=== PATIENT | female | born 1985 | race American Indian/Alaskan Native ===

== ENCOUNTER 2017-01-30 21:59 | Emergency (ER) | payer MEDICAID ==
[~2017-01-30] VITALS: Ht 160 cm; Wt 104.3 kg
[2017-01-30] MEDS ORDERED: Ketorolac 30mg Inj IV ONE (22:45)
[2017-01-30] MEDS ORDERED: Tetanus/Diptheria/Pertussis Vaccine 0.5ml Syr IM ONE (22:45)
[2017-01-30] MEDS ORDERED: Morphine Sulfate 4mg/ml Inj IVP ONE (22:45)
[2017-01-30 23:38] LABS: APPEARANCE,URINE SLIGHTLY CLOUDY; BASOPHILS % (AUTO) 0.7 % (0.0-2.0); EOSINOPHILS % (AUTO) 0.1 % (0.0-3.0); KETONES,URINE NEGATIVE (NEGATIVE); LEUKOCYTE ESTERASE ,URINE 3+ (NEGATIVE); LYMPHOCYTES % (AUTO) 14.1 % (20.0-45.0); MEAN CORPUSCULAR HEMOGLOBIN 27.4 PG (27.0-31.0); MEAN CORPUSCULAR HGB CONC 33.1 G/DL (32.0-36.0); MEAN CORPUSCULAR VOLUME 83 FL (80-99); MEAN PLATELET VOLUME 9.3 FL (6.5-10.1); MONOCYTES % (AUTO) 5.3 % (1.0-10.0); NEUTROPHILS % (AUTO) 79.7 % (45.0-75.0); NITRITE,URINE NEGATIVE (NEGATIVE); PH,URINE 6 (4.5-8.0); PLATELET COUNT 181 K/UL (150-450); PROTEIN,URINE 1+ (NEGATIVE); RED BLOOD COUNT 4.53 M/UL (4.20-5.40); RED CELL DISTRIBUTION WIDTH 14.8 % (11.6-14.8); UROBILINOGEN,URINE 4 MG/DL (0.0-1.0); WHITE BLOOD COUNT 13.3 K/UL (4.8-10.8)
[2017-01-30 23:55] LABS: ALANINE AMINOTRANSFERASE 8 U/L (3-33); ALBUMIN/GLOBULIN RATIO 1.2 (1.0-2.7); ANION GAP 15 (5-15); ASPARTATE AMINO TRANSFERASE 20 U/L (5-40); CALCIUM 9.2 mg/dL (8.6-10.2); CARBON DIOXIDE 26 mEQ/L (20-30); CHLORIDE 96 mEQ/L (98-107); GLOMERULAR FILTRATION RATE > 60 mL/min (>60); HEMOLYSIS 0; POTASSIUM 3.6 mEQ/L (3.4-4.9); SODIUM 137 mEQ/L (135-145); TOTAL PROTEIN 7.7 g/dL (6.6-8.7)
[2017-01-31 00:01] LABS: BACTERIA,URINE FEW /HPF; MUCUS,URINE MODERATE /LPF (NONE/OCC); RBC,URINE 0-2 /HPF (0 - 2); SQUAMOUS EPITHELIAL CELL,UR MODERATE /LPF (NONE/OCC); TRICHOMONAS,URINE MODERATE /HPF
[2017-01-31 00:02] LABS: INR 0.9 (0.9-1.1); PROTHROMBIN TIME 9.9 SEC (9.30-11.50)
[2017-01-31] MEDS ORDERED: Bactrim DS (160mg/800mg) tab ORAL ONE (00:15)
[2017-01-31] MEDS ORDERED: cefTRIAXone 1 GM in NS 55 ML IVPB ONE (00:15)
[2017-01-31 01:21] VITALS: BP 102/53
--- NOTE | 2017-01-31 01:21 | Emergency Room Report ---
History of Present Illness General Chief Complaint: Edema Source: Patient Present Illness HPI Presents with increased pain her right foot with swelling. She had a history of lymphedema in the past. The increased swelling and pain increased over the last few days. The pain is 10/10 burning aching and radiating towards her body. Swelling is also worsened at this time. She's felt that her foot is not fitting in DESI hose at this time. She's not sure when her last tetanus was. H/O lymphedema or R leg - longstanding, not sure of cause. No fevers, NVD, dysuria, cough, dyspnea, chest pain, dizziness, headache, change in bowels. No depression. Allergies: Coded Allergies: No Known Allergies (Unverified , 01/30/17) Patient History Past Medical History: see triage record Social History: Reports: smoking Social History Narrative with friend Reviewed Nursing Documentation: PMH: Agreed, PSxH: Agreed Nursing Documentation-PMH Past Medical History: No Stated History Review of Systems All Other Systems: negative except mentioned in HPI Physical Exam Vital Signs Date Time Temp Pulse Resp B/P (MAP) Pulse Ox O2 Delivery O2 Flow Rate FiO2 01/30/17 22:22 98.8 109 20 169/126 98 Room Air Sp02 EP Interpretation: reviewed, normal General Appearance: well appearing, no apparent distress, GCS 15 Head: normocephalic Eyes: bilateral eye normal inspection, bilateral eye PERRL ENT: moist mucus membranes Neck: supple Respiratory: chest non-tender, lungs clear, normal breath sounds Cardiovascular #1: regular rate, rhythm, other - cap fill normal R foot, edema - R leg, more lymphedema than pitting Cardiovascular #2: 2+ radial (R) Gastrointestinal: normal inspection, normal bowel sounds, non tender, no mass, non-distended, overweight Musculoskeletal: digits/nails normal, no calf tenderness, Nery's Sign negative , inflammation, swelling - dorsum of R foot Neurologic: alert, oriented x3, grossly normal Psychiatric: mood/affect normal Skin: warm/dry, other - erythema R dorsum of foot Medical Decision Making Diagnostic Impression: Primary Impression: Cellulitis Qualified Codes: L03.115 - Cellulitis of right lower limb Additional Impressions: Lymphedema UTI (urinary tract infection) Qualified Codes: N30.00 - Acute cystitis without hematuria ER Course Patient with increased pain and swelling R LE. Ddx: DVT, cellulitis, lymphedema amongst others. Urgent evaluation to exclude DVT and evaluate renal function. Treatment for pain and initiation of antibiotics. Analgesics given. Labs with leukocytosis and pyuria. DVT excluded with vasc study. Consideration for need for further IV antibiotics due to lymphedema, however, will attempt to control infection with po meds. One dose of rocephin given. Patient stable for outpatient observation and treatment. Laboratory Tests Test 01/30/17 23:00 White Blood Count 13.3 K/UL (4.8-10.8) H Red Blood Count 4.53 M/UL (4.20-5.40) Hemoglobin 12.4 G/DL (12.0-16.0) Hematocrit 37.5 % (37.0-47.0) Mean Corpuscular Volume 83 FL (80-99) Mean Corpuscular Hemoglobin 27.4 PG (27.0-31.0) Mean Corpuscular Hemoglobin Concent 33.1 G/DL (32.0-36.0) Red Cell Distribution Width 14.8 % (11.6-14.8) Platelet Count 181 K/UL (150-450) Mean Platelet Volume 9.3 FL (6.5-10.1) Neutrophils (%) (Auto) 79.7 % (45.0-75.0) H Lymphocytes (%) (Auto) 14.1 % (20.0-45.0) L Monocytes (%) (Auto) 5.3 % (1.0-10.0) Eosinophils (%) (Auto) 0.1 % (0.0-3.0) Basophils (%) (Auto) 0.7 % (0.0-2.0) Prothrombin Time 9.9 SEC (9.30-11.50) Prothrombin Time INR 0.9 (0.9-1.1) PTT 30 SEC (23-33) Urine Color [place] Urine Appearance Slightly cloudy Urine pH 6 (4.5-8.0) Urine Specific [place] 1.015 (1.005-1.035) Urine Protein 1+ (NEGATIVE) H Urine Glucose (UA) Negative (NEGATIVE) Urine Ketones Negative (NEGATIVE) Urine Occult Blood Negative (NEGATIVE) Urine Nitrite Negative (NEGATIVE) Urine Bilirubin Negative (NEGATIVE) Urine Ictotest Urine Urobilinogen 4 MG/DL (0.0-1.0) H Urine Leukocyte Esterase 3+ (NEGATIVE) H Urine RBC 0-2 /HPF (0 - 2) Urine WBC 10-15 /HPF (0 - 2) H Urine Squamous Epithelial Cells Moderate /LPF (NONE/OCC) H Urine Bacteria Few /HPF (NONE) Urine Mucus Moderate /LPF (NONE/OCC) H Urine Trichomonas Moderate /HPF (NONE) H Urine HCG, Qualitative Negative Sodium Level 137 mEQ/L (135-145) Potassium Level 3.6 mEQ/L (3.4-4.9) Chloride Level 96 mEQ/L (98-107) L Carbon Dioxide Level 26 mEQ/L (20-30) Anion Gap 15 (5-15) Blood Urea Nitrogen 16 mg/dL (7-23) Creatinine 1.0 mg/dL (0.5-0.9) H Estimate Glomerular Filtration Rate > 60 mL/min (>60) Glucose Level 104 mg/dL (74-106) Calcium Level 9.2 mg/dL (8.6-10.2) Total Bilirubin 0.6 mg/dL (0.0-1.2) Aspartate Amino Transferase (AST) 20 U/L (5-40) Alanine Aminotransferase (ALT) 8 U/L (3-33) Alkaline Phosphatase 71 U/L (35-104) Total Creatine Kinase 206 U/L (26-140) H Pro-B-Type Natriuretic Peptide 11 pg/mL (0-125) Total Protein 7.7 g/dL (6.6-8.7) Albumin 4.2 g/dL (3.5-5.2) Globulin 3.5 g/dL Albumin/Globulin Ratio 1.2 (1.0-2.7) EKG Diagnostic Results Rate: tachycardiac Rhythm: NSR ST Segments: no acute changes Rhythm Strip Diag. Results EP Interpretation: yes Rhythm: NSR, no PVC's, no ectopy Chest X-Ray Diagnostic Results Chest X-Ray Diagnostic Results : Chest X-Ray Ordered: Yes # of Views/Limited/Complete: 1 View Indication: Other EP Interpretation: Yes Interpretation: no consolidation, no effusion, no pneumothorax Impression: No acute disease Electronically Signed by: Electronically signed by Michael Max MD Other X-Ray Diagnostic Results Other X-Ray Diagnostic Results : X-Ray ordered: R foot # of Views/Limited Vs Complete: 3 View Indication: Swelling EP Interpretation: Yes Interpretation: no dislocation, no soft tissue swelling, no fractures Impression: Other Electronically Signed by: Electronic Last Vital Signs Date Time Temp Pulse Resp B/P (MAP) Pulse Ox O2 Delivery O2 Flow Rate FiO2 01/31/17 01:45 98.8 81 20 112/61 98 Room Air Status: improved Disposition: HOME, SELF-CARE Condition: Improved Scripts Trimethoprim/Sulfamethoxazole 160/800* (BACTRIM DS TABLET*) 1 Each Tablet 1 TAB ORAL Q12H, #14 TAB 0 Refills Prov: Michael Max M.D. 01/31/17 Ibuprofen* (MOTRIN*) 600 Mg Tablet 600 MG ORAL Q6H Y for For Pain, #20 TAB Prov: Michael Max M.D. 01/31/17 Tramadol Hcl* (ULTRAM*) 50 Mg Tablet 50 MG ORAL Q6H Y for For Pain, #12 TAB 0 Refills Prov: Michael Max M.D. 01/31/17 Cephalexin* (KEFLEX*) 500 Mg Capsule 500 MG ORAL Q6H, #28 CAP 0 Refills Prov: Michael Max M.D. 01/31/17 Michael Max M.D. Jan 31, 2017 01:21
[2017-01-31] MEDS ORDERED: IBUPROFEN600 MG ORAL (01:25)
[2017-01-31] MEDS ORDERED: BACTRIM DS TAB1 EAC1 ORAL (01:25)
[2017-01-31] MEDS ORDERED: KEFLEX500 MG ORAL (01:25)
[2017-01-31] MEDS ORDERED: TRAMADOL HCL50 MG ORAL (01:25)
[2017-01-31 01:45] VITALS: BP_SYST 102; BP_SYST 112; BP_DIAS 53; BP_DIAS 61
--- NOTE | 2017-01-31 12:50 | Diagnostic Imaging Report ---
APPROVED REPORT CPT Code: 02208 Present Symptoms Lower Extremity Pain: Right Lower Extremity Edema: Right Comments: Technically difficult study due to vessel depth in calf area . RIGHT LEG: Imaging reveals a patent deep venous system bilaterally. There is no evidence of thrombus within the femoral, popliteal or tibial segments. The greater saphenous veins are also within normal limits. Doppler indicates normal spontaneous flow within these segments.
--- NOTE | 2017-01-31 15:14 | Diagnostic Imaging Report ---
Indication: Foot pain and swelling, possible bug bite Technique: 3 views right foot Comparison: none Findings: There is soft tissue swelling, particularly dorsally. No soft tissue gas demonstrated. No radiopaque foreign body demonstrated. No acute fractures. No dislocations Impression: Soft tissue swelling. Graft negative for soft tissue gas, foreign body, or bony injury This agrees with the preliminary interpretation provided by the emergency room physician
--- NOTE | 2017-01-31 15:59 | Diagnostic Imaging Report ---
Indication: SYNCOPE Technique: One view of the chest Comparison: none Findings: Lungs and pleural spaces are clear. Heart size is normal. Impression: No acute process This agrees with the preliminary interpretation provided by the emergency room physician
== END 2017-01-31 01:45 | disposition home or self-care (01) ==
LOC: EMR 22:35
DX: L03.115 Cellulitis of right lower limb (principal); I89.0 Lymphedema, not elsewhere classified; N39.0 Urinary tract infection, site not specified; Z23 Encounter for immunization; F17.200 Nicotine dependence, unspecified, uncomplicated
CPT/HCPCS: 36415; 71010; 73630; 80053; 81003; 81025; 82550; 83880; 85025; 85610; 85730; 87086; 90471; 90715; 93005; 93970; 96361; 96374; 96375; 99284; J0696; J1885; J2270; J2405

== ENCOUNTER 2017-02-16 12:54 | Inpatient (IN) | payer MEDICAID ==
[~2017-02-16] VITALS: Ht 160 cm; Wt 104.3 kg
[~2017-02-16 12:54] MED LIST: BACTRIM DS TAB1 EAC1 ORAL; IBUPROFEN600 MG ORAL; KEFLEX500 MG ORAL; TRAMADOL HCL50 MG ORAL
--- NOTE | 2017-02-16 13:29 | Emergency Room Report ---
History of Present Illness General Chief Complaint: Fever Source: Patient (Ralph Parsons M.D.) Present Illness HPI 31-year-old female history of morbid obesity, lymphedema, presenting with right lower extremity pain and rash for 2 weeks Patient completed Bactrim and Keflex as prescribed by the emergency room 2 weeks ago. States that she has had increased pain and swelling to the area also with subjective fevers During the last ED visit also had a vascular ultrasound that was negative for DVT (Ralph Parsons M.D.) Allergies: Coded Allergies: No Known Allergies (Unverified , 01/30/17) Patient History Past Medical History: see triage record Past Surgical History: none Pertinent Family History: none Last Menstrual Period: 02/16/17 Now: No : 5 Para: 4 Reviewed Nursing Documentation: PMH: Agreed, PSxH: Agreed (Ralph Parsons M.D. ) Nursing Documentation-PMH Past Medical History: No History, Except For Hx Cardiac Problems: No - lymphadema (Ralph Parsons M.D.) Review of Systems All Other Systems: negative except mentioned in HPI (Ralph Parsons M.D.) Physical Exam Vital Signs Date Time Temp Pulse Resp B/P (MAP) Pulse Ox O2 Delivery O2 Flow Rate FiO2 02/16/17 13:05 102.7 125 26 105/65 97 Room Air Sp02 EP Interpretation: reviewed, normal General Appearance: alert, GCS 15, non-toxic, moderate distress Head: normocephalic, atraumatic Eyes: bilateral eye normal inspection, bilateral eye PERRL, bilateral eye EOMI ENT: normal ENT inspection, normal pharynx, normal voice, moist mucus membranes Neck: normal inspection, full range of motion, supple Respiratory: normal inspection, lungs clear, normal breath sounds, no respiratory distress, no retraction, no wheezing, speaking full sentences, chest symmetrical Cardiovascular #1: normal inspection, regular rate, rhythm, no edema, normal capillary refill Cardiovascular #2: 2+ radial (R), 2+ radial (L) Gastrointestinal: normal inspection, non tender, soft, non-distended, no guarding Musculoskeletal: normal range of motion, other - Right lower extremity with redness and edema extending from the dorsum of the foot to the distal third calf. Tender to palpation. With open abrasion that is wet but without edil purulent drainage Neurologic: normal inspection, alert, oriented x3, responsive, motor strength/ tone normal, sensory intact, normal gait, speech normal Psychiatric: normal inspection, judgement/insight normal, memory normal Skin: normal inspection, normal color, no rash, warm/dry, well hydrated, normal turgor (Ralph aPrsons M.D.) Procedures Critical Care Time Critical Care Time 40 minutes of CC time 31-year-old female with right lower extremity cellulitis VS: Tachycardic, normal blood pressure Sepsis criteria met Airway patent. Not hypoxic. PLAN: IV access, labs, lactate, Blood/Urine Cx, Abx Anticipate admission to Tele CC time also includes review of labs, review of EMR, , d/w hospitalist CC could include dosing of pressors, additional Abx CC time does not include procedures (Ralph Parsons M.D.) Medical Decision Making Diagnostic Impression: Primary Impression: Cellulitis Additional Impressions: Fever with chills Sepsis ER Course 31-year-old female with right lower extremity pain and swelling, failed outpatient treatment for antibiotics DDX: cellulitis No crepitus / pain out of proportion / rapid spreading for concern for nec fasc Plan: Antibiotics Anticipate admission ER course: Patient has been monitored during ED stay, HD stable Given Tylenol and dose of vancomycin Disposition: Patient is to be admitted to [facility] Signed out patient to Dr. Osorio 31-year-old female with cellulitis failed outpatient treatment Pending remaining labs Pending admission to [facility] Please note that this Emergency Department Report was dictated using [employer] blender technology software, occasionally this can lead to erroneous entry secondary to interpretation by the dictation equipment. Laboratory Tests Test 02/19/17 07:52 White Blood Count 6.3 K/UL (4.8-10.8) Red Blood Count 3.29 M/UL (4.20-5.40) L Hemoglobin 8.5 G/DL (12.0-16.0) L Hematocrit 26.7 % (37.0-47.0) L Mean Corpuscular Volume 81 FL (80-99) Mean Corpuscular Hemoglobin 25.8 PG (27.0-31.0) L Mean Corpuscular Hemoglobin Concent 31.8 G/DL (32.0-36.0) L Red Cell Distribution Width 15.2 % (11.6-14.8) H Platelet Count 126 K/UL (150-450) L Mean Platelet Volume 8.7 FL (6.5-10.1) Neutrophils (%) (Auto) 83.1 % (45.0-75.0) H Lymphocytes (%) (Auto) 11.0 % (20.0-45.0) L Monocytes (%) (Auto) 5.0 % (1.0-10.0) Eosinophils (%) (Auto) 0.0 % (0.0-3.0) Basophils (%) (Auto) 0.8 % (0.0-2.0) Sodium Level 131 MMOL/L (136-145) L Potassium Level 3.6 MMOL/L (3.5-5.1) Chloride Level 100 MMOL/L (98-107) Carbon Dioxide Level 23 MMOL/L (21-32) Anion Gap 8 (5-15) Blood Urea Nitrogen 6 mg/dL (7-18) L Creatinine 0.8 MG/DL (0.55-1.30) Estimate Glomerular Filtration Rate > 60 mL/min (>60) Glucose Level 85 MG/DL (74-106) Calcium Level 8.6 MG/DL (8.5-10.1) Phosphorus Level 2.3 MG/DL (2.5-4.9) L Magnesium Level 1.7 MG/DL (1.8-2.4) L (Ralph Parsons M.D.) ER Course Seen by for history of present illness. Patient was noted to have evidence of cellulitis. The patient had been given IV antibiotics the patient' s case was discussed with Dr. Peace for for inpatient management. (Donte Osorio) Rhythm Strip Diag. Results EP Interpretation: yes Rate: 100 Rhythm: NSR, no PVC's, no ectopy (Ralph Parsons M.D.) Last Vital Signs Date Time Temp Pulse Resp B/P (MAP) Pulse Ox O2 Delivery O2 Flow Rate FiO2 02/16/17 13:05 102.7 125 26 105/65 97 Room Air (Ralph Parsons M.D.) Status: improved (Donte Osorio) Disposition: ADMITTED INPATIENT Condition: Serious Scripts Trimethoprim/Sulfamethoxazole 160/800* (BACTRIM DS TABLET*) 1 Each Tablet 1 TAB ORAL Q12H for 7 Days, #14 TAB 0 Refills Prov: Michael Sevilla M.D. 02/22/17 Cephalexin* (KEFLEX*) 500 Mg Capsule 500 MG ORAL Q6H for 7 Days, #28 CAP 0 Refills Prov: Michael Sevilla M.D. 02/22/17 Ralph Parsons M.D. Feb 16, 2017 13:29 Donte Osorio Feb 16, 2017 14:57
[2017-02-16] MEDS ORDERED: NS 1000ml 3,100 ML IVLG ONE (13:30)
[2017-02-16] MEDS ORDERED: Vancomycin 1.5gm/D5W 250ml 250 ML IVPB ONE (13:30)
[2017-02-16 13:45] LABS: MEAN CORPUSCULAR HEMOGLOBIN 25.6 PG (27.0-31.0); MEAN CORPUSCULAR HGB CONC 31.1 G/DL (32.0-36.0); MEAN CORPUSCULAR VOLUME 82 FL (80-99); MEAN PLATELET VOLUME 9.6 FL (6.5-10.1); PLATELET COUNT 214 K/UL (150-450); RED BLOOD COUNT 4.54 M/UL (4.20-5.40); RED CELL DISTRIBUTION WIDTH 14.5 % (11.6-14.8); WHITE BLOOD COUNT 19.2 K/UL (4.8-10.8)
[2017-02-16 13:55] VITALS: BP 116/60
[2017-02-16 13:59] LABS: ALANINE AMINOTRANSFERASE 15 U/L (12-78); ALBUMIN/GLOBULIN RATIO 0.8 (1.0-2.7); ANION GAP 9 (5-15); ASPARTATE AMINO TRANSFERASE 22 U/L (15-37); CALCIUM 9.4 MG/DL (8.5-10.1); CARBON DIOXIDE 24 MMOL/L (21-32); CHLORIDE 101 MMOL/L (98-107); CREATININE 1.1 MG/DL (0.55-1.30); POTASSIUM 3.4 MMOL/L (3.5-5.1); SODIUM 134 MMOL/L (136-145); TOTAL PROTEIN 7.9 G/DL (6.4-8.2)
[2017-02-16] MEDS ORDERED: Morphine Sulfate 4mg/ml Inj IVP ONE ×2 (14:00→16:15)
[2017-02-16 15:39] LABS: APPEARANCE,URINE SLIGHTLY CLOUDY; KETONES,URINE NEGATIVE (NEGATIVE); LEUKOCYTE ESTERASE ,URINE 3+ (NEGATIVE); NITRITE,URINE NEGATIVE (NEGATIVE); PH,URINE 6.5 (4.5-8.0); PROTEIN,URINE NEGATIVE (NEGATIVE); UROBILINOGEN,URINE NORMAL MG/DL (0.0-1.0)
[2017-02-16] MEDS ORDERED: NKM (16:12)
[2017-02-16 16:14] LABS: BACTERIA,URINE MODERATE /HPF; SQUAMOUS EPITHELIAL CELL,UR MODERATE /LPF (NONE/OCC)
[2017-02-16 16:21] VITALS: BP 102/66
[2017-02-16 16:43] LABS: BAND NEUTROPHILS % (MANUAL) 3 % (0-8); LYMPHOCYTES % (MANUAL) 4 % (20-45); NEUTROPHILS % (MANUAL) 92 % (45-75); TOTAL CELLS COUNTED 100
[2017-02-16] MEDS ORDERED: Miralax 17gm pkt ORAL PRN (16:45)
[2017-02-16] MEDS ORDERED: Zolpidem 5mg tab ORAL PRN (16:45)
[2017-02-16] MEDS ORDERED: Mylanta II UD 30ml ORAL PRN (16:45)
[2017-02-16 16:46] LABS: ANISOCYTOSIS 1+; BASOPHILS % (MANUAL) 0 % (0-2); EOSINOPHILS % (MANUAL) 0 % (0-3); PLATELET ESTIMATE ADEQUATE; PLATELET MORPHOLOGY NORMAL; POLYCHROMASIA 1+
--- NOTE | 2017-02-16 16:47 | History and Physical ---
History of Present Illness General Date patient seen: Feb 16, 2017 Time patient seen: 16:47 Reason for Hospitalization: sepsis Present Illness HPI 31y/o female with pmh of lymphedema who presents with increased RLE pain/ swelling/redness. Pt states abt 2 weeks ago she was seen in ER and placed on antibiotics for cellulitis and also for UTI. She completed the antibiotics abt 1 week ago; and she was able to ambulate. However today she noted recurrent RLE swelling/pain/redness with difficulty ambulating/bearing weight on RLE. Also noted some purulent drainage from R foot. She thinks abt 2 weeks ago she had some kind of bug bite or R foot. She also started having fevers/chills, nausea, poor appetite and generalized weakness. Denies chest pain, SOB, abd pain, dysuria. She denies recent travel. Allergies: Coded Allergies: No Known Allergies (Unverified , 01/30/17) Medication History Scheduled Cephalexin* (Keflex*), 500 MG ORAL Q6H No Known Medications* (NKM - No Known Medications*), 0 ., (Reported) Trimethoprim/Sulfamethoxazole 160/800* (Bactrim Ds Tablet*), 1 TAB ORAL Q12H Scheduled PRN Ibuprofen* (Motrin*), 600 MG ORAL Q6H PRN for For Pain Tramadol Hcl* (Ultram*), 50 MG ORAL Q6H PRN for For Pain Patient History History Provided By: Patient, Medical Record Healthcare decision maker Resuscitation status Advanced Directive on File Past Medical/Surgical History Past Medical/Surgical History: (1) Lymphedema Social History Social History: (1) Smoker Review of Systems Constitutional: Reports: chills, fever, weakness Eye: Reports: no symptoms ENT: Reports: no symptoms Respiratory: Reports: no symptoms Cardiovascular: Reports: no symptoms Gastrointestinal: Reports: no symptoms Genitourinary: Reports: no symptoms Musculoskeletal: Reports: no symptoms Skin: Reports: no symptoms Psychiatric: Reports: no symptoms Neurological: Reports: no symptoms Endocrine: Reports: no symptoms Hematologic/Lymphatic: Reports: no symptoms Physical Exam Physical Exam Narrative General: alert, cooperative, no distress, appears stated age Head: normocephalic, without obvious abnormality, atraumatic Eyes: conjunctivae/corneas clear. PERRL, EOM's intact Throat: lips, mucosa, and tongue normal. MMM Neck: supple, symmetrical, trachea midline, and no JVD Lungs: clear to auscultation bilaterally Heart: regular rate and rhythm, S1, S2 normal, no murmur, click, rub or gallop Abdomen: soft, non-tender, non-distended, bowel sounds normal; no masses or organomegaly Extremities: Right lower extremity with 3+ edema/erythema/TTP from the dorsum of the foot to the distal third calf. With open abrasion on dorsum of R foot that is wet but without edil purulent drainage Pulses: 2+ and symmetric Skin: skin color, texture, turgor normal; no rashes or lesions Neurologic: grossly normal, no focal deficits Last 24 Hour Vital Signs Date Time Temp Pulse Resp B/P (MAP) Pulse Ox O2 Delivery O2 Flow Rate FiO2 02/16/17 16:39 100.2 02/16/17 16:21 100.2 105 26 102/66 99 Room Air 02/16/17 14:57 102.0 02/16/17 14:57 102.0 02/16/17 13:55 102.7 103 26 116/60 97 Room Air 02/16/17 13:05 102.7 125 26 105/65 97 Room Air Intake and Output 02/16/17 02/17/17 19:00 07:00 Intake Total 120 ml Balance 120 ml Intake Oral 120 ml Laboratory Tests Test 02/16/17 13:25 02/16/17 14:50 White Blood Count 19.2 K/UL (4.8-10.8) H Red Blood Count 4.54 M/UL (4.20-5.40) Hemoglobin 11.6 G/DL (12.0-16.0) L Hematocrit 37.3 % (37.0-47.0) Mean Corpuscular Volume 82 FL (80-99) Mean Corpuscular Hemoglobin 25.6 PG (27.0-31.0) L Mean Corpuscular Hemoglobin Concent 31.1 G/DL (32.0-36.0) L Red Cell Distribution Width 14.5 % (11.6-14.8) Platelet Count 214 K/UL (150-450) Mean Platelet Volume 9.6 FL (6.5-10.1) Neutrophils (%) (Auto) % (45.0-75.0) Lymphocytes (%) (Auto) % (20.0-45.0) Monocytes (%) (Auto) % (1.0-10.0) Eosinophils (%) (Auto) % (0.0-3.0) Basophils (%) (Auto) % (0.0-2.0) Differential Total Cells Counted 100 Neutrophils % (Manual) 92 % (45-75) H Lymphocytes % (Manual) 4 % (20-45) L Monocytes % (Manual) 1 % (1-10) Eosinophils % (Manual) 0 % (0-3) Basophils % (Manual) 0 % (0-2) Band Neutrophils 3 % (0-8) Platelet Estimate Adequate Platelet Morphology Normal Polychromasia 1+ Anisocytosis 1+ Sodium Level 134 MMOL/L (136-145) L Potassium Level 3.4 MMOL/L (3.5-5.1) L Chloride Level 101 MMOL/L (98-107) Carbon Dioxide Level 24 MMOL/L (21-32) Anion Gap 9 (5-15) Blood Urea Nitrogen 14 mg/dL (7-18) Creatinine 1.1 MG/DL (0.55-1.30) Estimat Glomerular Filtration Rate 58.0 mL/min (>60) Glucose Level 95 MG/DL (74-106) Lactic Acid Level 1.40 mmol/L (0.66-2.22) Calcium Level 9.4 MG/DL (8.5-10.1) Total Bilirubin 0.7 MG/DL (0.2-1.0) Aspartate Amino Transf (AST/SGOT) 22 U/L (15-37) Alanine Aminotransferase (ALT/SGPT) 15 U/L (12-78) Alkaline Phosphatase 60 U/L (46-116) Total Protein 7.9 G/DL (6.4-8.2) Albumin 3.6 G/DL (3.4-5.0) Globulin 4.3 g/dL Albumin/Globulin Ratio 0.8 (1.0-2.7) L Urine Color Pale yellow Urine Appearance Slightly cloudy Urine pH 6.5 (4.5-8.0) Urine Specific [place] 1.005 (1.005-1.035) Urine Protein Negative (NEGATIVE) Urine Glucose (UA) Negative (NEGATIVE) Urine Ketones Negative (NEGATIVE) Urine Occult Blood 4+ (NEGATIVE) H Urine Nitrite Negative (NEGATIVE) Urine Bilirubin Negative (NEGATIVE) Urine Urobilinogen Normal MG/DL (0.0-1.0) Urine Leukocyte Esterase 3+ (NEGATIVE) H Urine RBC 10-15 /HPF (0 - 2) H Urine WBC 10-15 /HPF (0 - 2) H Urine Squamous Epithelial Cells Moderate /LPF (NONE/OCC) H Urine Bacteria Moderate /HPF (NONE) H Urine HCG, Qualitative Negative Height (Feet): 5 Height (Inches): 3.00 Weight (Pounds): 230 Medications Current Medications Medications (Trade) Dose Ordered Sig/Zane Route PRN Reason Start Time Stop Time Status Last Admin Dose Admin Acetaminophen (Tylenol) 650 mg Q4H PRN ORAL Mild Pain (Pain Scale 1-3) 02/16/17 16:45 03/18/17 16:44 UNV Al Hydroxide/Mg Hydroxide (Mylanta II) 30 ml Q6H PRN ORAL dyspepsia 02/16/17 16:45 03/18/17 16:44 UNV Bisacodyl (Dulcolax) 10 mg HSPRN PRN RECTAL Constipation 02/16/17 16:45 03/18/17 16:44 UNV Dextrose (Dextrose 50%) STAT PRN IV Hypoglycemia 02/16/17 16:45 03/18/17 16:44 UNV Diphenhydramine HCl (Benadryl) 25 mg Q6H PRN ORAL Itching/Pruritis 02/16/17 16:45 03/18/17 16:44 UNV Docusate Sodium (Colace) 100 mg EVERY 12 HOURS ORAL 02/16/17 21:00 03/18/17 20:59 UNV Heparin Sodium (Porcine) (Heparin 5000 units/ml) 5,000 units EVERY 12 HOURS SUBQ 02/16/17 21:00 03/18/17 20:59 UNV Ondansetron HCl (Zofran) 4 mg Q6H PRN IVP Nausea & Vomiting 02/16/17 16:45 03/18/17 16:44 UNV Polyethylene Glycol (Miralax) 17 gm HSPRN PRN ORAL Constipation 02/16/17 16:45 03/18/17 16:44 UNV Potassium Chloride (K-Dur) 40 meq ONCE ONCE ORAL 02/16/17 16:45 02/16/17 16:46 UNV Sodium Chloride 1,000 ml @ 100 mls/hr Q10H IV 02/16/17 16:45 03/18/17 16:44 UNV Vancomycin HCl (Vanco rx to dose) 1 ea DAILY PRN MISC Per rx protocol 02/16/17 16:45 03/18/17 16:44 UNV Zolpidem Tartrate (Ambien) 5 mg HSPRN PRN ORAL Insomnia 02/16/17 16:45 02/23/17 16:44 UNV Assessment/Plan Problem List: (1) Sepsis ICD Codes: A41.9 - Sepsis, unspecified organism SNOMED: 79645169 (2) Cellulitis of right lower extremity ICD Codes: L03.115 - Cellulitis of right lower limb SNOMED: 757948731 (3) UTI (urinary tract infection) ICD Codes: N39.0 - Urinary tract infection, site not specified SNOMED: 72979579 (4) Trichomonal vaginitis ICD Codes: A59.01 - Trichomonal vulvovaginitis SNOMED: 104602714 (5) Hypokalemia ICD Codes: E87.6 - Hypokalemia SNOMED: 07987046 (6) Hyponatremia ICD Codes: E87.1 - Hypo-osmolality and hyponatremia SNOMED: 96350915 Status: stable Assessment/Plan Admit inpt IVFs ID consulted Empiric vanco and cefepime for sepsis Add flagyl to cover trichomonas seen on prior U/A F/u blood cultures F/u urine culture Check BLE venous duplex Check CT foot and RLE to eval for underlying abscess Pain control, bowel regimen Supportive care Family Practice Physician Assistant on smoking cessation FULL CODE D/w pt, RN, ID regarding mgmt and Michael Moser M.D. Feb 16, 2017 16:47
[2017-02-16] MEDS ORDERED: Norco 5mg/325mg tab ORAL PRN (17:00)
[2017-02-16] MEDS: Norco 10mg/325mg tab ORAL PRN (17:48)
[2017-02-16] MEDS: Cefepime HCl 2 GM in D5W 110 ML IVPB SCH (17:58)
--- NOTE | 2017-02-16 18:07 | Infectious Diseases Prog Note ---
Assessment/Plan Assessment/Plan Full consult dictated: A) 1) right foot possible abscess/cellulitis, right leg cellulitis, sepsis, leukocytosis, fevers 2) possible uti, possible trichomonas vaginalis/cervicitis 3) pmh o/w negative 4) + smoking hx 5) allergies - negative P) 1) vancomycin, cefepime and flagyl 2) ct foot/leg maria g 3) check labs and blood cultures 4) d/w Dr. Rodriguez 5) thank you Subjective Allergies: Coded Allergies: No Known Allergies (Unverified , 01/30/17) Objective Vital Signs Last 24 Hour Vital Signs Date Time Temp Pulse Resp B/P (MAP) Pulse Ox O2 Delivery O2 Flow Rate FiO2 02/16/17 16:50 100.2 105 26 102/66 99 Room Air 02/16/17 16:39 100.2 02/16/17 16:21 100.2 105 26 102/66 99 Room Air 02/16/17 14:57 102.0 02/16/17 14:57 102.0 02/16/17 13:55 102.7 103 26 116/60 97 Room Air 02/16/17 13:05 102.7 125 26 105/65 97 Room Air Height (Feet): 5 Height (Inches): 3.00 Weight (Pounds): 230 Laboratory Tests Test 02/16/17 13:25 02/16/17 14:50 White Blood Count 19.2 K/UL (4.8-10.8) H Red Blood Count 4.54 M/UL (4.20-5.40) Hemoglobin 11.6 G/DL (12.0-16.0) L Hematocrit 37.3 % (37.0-47.0) Mean Corpuscular Volume 82 FL (80-99) Mean Corpuscular Hemoglobin 25.6 PG (27.0-31.0) L Mean Corpuscular Hemoglobin Concent 31.1 G/DL (32.0-36.0) L Red Cell Distribution Width 14.5 % (11.6-14.8) Platelet Count 214 K/UL (150-450) Mean Platelet Volume 9.6 FL (6.5-10.1) Neutrophils (%) (Auto) % (45.0-75.0) Lymphocytes (%) (Auto) % (20.0-45.0) Monocytes (%) (Auto) % (1.0-10.0) Eosinophils (%) (Auto) % (0.0-3.0) Basophils (%) (Auto) % (0.0-2.0) Differential Total Cells Counted 100 Neutrophils % (Manual) 92 % (45-75) H Lymphocytes % (Manual) 4 % (20-45) L Monocytes % (Manual) 1 % (1-10) Eosinophils % (Manual) 0 % (0-3) Basophils % (Manual) 0 % (0-2) Band Neutrophils 3 % (0-8) Platelet Estimate Adequate Platelet Morphology Normal Polychromasia 1+ Anisocytosis 1+ Sodium Level 134 MMOL/L (136-145) L Potassium Level 3.4 MMOL/L (3.5-5.1) L Chloride Level 101 MMOL/L (98-107) Carbon Dioxide Level 24 MMOL/L (21-32) Anion Gap 9 (5-15) Blood Urea Nitrogen 14 mg/dL (7-18) Creatinine 1.1 MG/DL (0.55-1.30) Estimat Glomerular Filtration Rate 58.0 mL/min (>60) Glucose Level 95 MG/DL (74-106) Lactic Acid Level 1.40 mmol/L (0.66-2.22) Calcium Level 9.4 MG/DL (8.5-10.1) Total Bilirubin 0.7 MG/DL (0.2-1.0) Aspartate Amino Transf (AST/SGOT) 22 U/L (15-37) Alanine Aminotransferase (ALT/SGPT) 15 U/L (12-78) Alkaline Phosphatase 60 U/L (46-116) Total Protein 7.9 G/DL (6.4-8.2) Albumin 3.6 G/DL (3.4-5.0) Globulin 4.3 g/dL Albumin/Globulin Ratio 0.8 (1.0-2.7) L Urine Color Pale yellow Urine Appearance Slightly cloudy Urine pH 6.5 (4.5-8.0) Urine Specific [place] 1.005 (1.005-1.035) Urine Protein Negative (NEGATIVE) Urine Glucose (UA) Negative (NEGATIVE) Urine Ketones Negative (NEGATIVE) Urine Occult Blood 4+ (NEGATIVE) H Urine Nitrite Negative (NEGATIVE) Urine Bilirubin Negative (NEGATIVE) Urine Urobilinogen Normal MG/DL (0.0-1.0) Urine Leukocyte Esterase 3+ (NEGATIVE) H Urine RBC 10-15 /HPF (0 - 2) H Urine WBC 10-15 /HPF (0 - 2) H Urine Squamous Epithelial Cells Moderate /LPF (NONE/OCC) H Urine Bacteria Moderate /HPF (NONE) H Urine HCG, Qualitative Negative Current Medications Medications (Trade) Dose Ordered Sig/Zane Route PRN Reason Start Time Stop Time Status Last Admin Dose Admin Acetaminophen (Tylenol) 650 mg Q4H PRN ORAL Mild Pain (Pain Scale 1-3) 02/16/17 16:45 03/18/17 16:44 Acetaminophen/ Hydrocodone Bitart ([place] 10/325) 1 ea Q4H PRN ORAL severe pain 02/16/17 17:00 02/23/17 16:59 02/16/17 17:48 Acetaminophen/ Hydrocodone Bitart ([place] 5/325) 1 tab Q4H PRN ORAL Moderate Pain (Pain Scale 4-6) 02/16/17 17:00 02/23/17 16:59 Al Hydroxide/Mg Hydroxide (Mylanta II) 30 ml Q6H PRN ORAL dyspepsia 02/16/17 16:45 03/18/17 16:44 Bisacodyl (Dulcolax) 10 mg HSPRN PRN RECTAL Constipation Second Line Agent 02/16/17 16:45 03/18/17 16:44 Cefepime HCl 2 gm/ Dextrose 110 ml @ 220 mls/hr Q12HR@0600,1800 IVPB 02/16/17 18:00 02/23/17 17:59 02/16/17 17:58 Dextrose (Dextrose 50%) STAT PRN IV Hypoglycemia 02/16/17 16:45 03/18/17 16:44 Diphenhydramine HCl (Benadryl) 25 mg Q6H PRN ORAL Itching/Pruritis 02/16/17 16:45 03/18/17 16:44 Docusate Sodium (Colace) 100 mg EVERY 12 HOURS ORAL 02/16/17 21:00 03/18/17 20:59 Heparin Sodium (Porcine) (Heparin 5000 units/ml) 5,000 units EVERY 12 HOURS SUBQ 02/16/17 21:00 03/18/17 20:59 Morphine Sulfate (Morphine Sulfate) 4 mg Q4H PRN IVP breakthrough pain 02/16/17 17:00 02/23/17 16:59 Ondansetron HCl (Zofran) 4 mg Q6H PRN IVP Nausea & Vomiting 02/16/17 16:45 03/18/17 16:44 Polyethylene Glycol (Miralax) 17 gm HSPRN PRN ORAL Constipation First Line Agent 02/16/17 16:45 03/18/17 16:44 Sodium Chloride 1,000 ml @ 100 mls/hr Q10H IV 02/16/17 17:45 03/18/17 17:44 02/16/17 17:33 Vancomycin HCl (Vanco rx to dose) 1 ea DAILY PRN MISC Per rx protocol 02/16/17 16:45 03/18/17 16:44 Vancomycin HCl/ Dextrose 250 ml @ 125 mls/hr Q12HR@0200,1400 IVPB 02/17/17 02:00 02/22/17 01:59 Zolpidem Tartrate (Ambien) 5 mg HSPRN PRN ORAL Insomnia 02/16/17 16:45 02/23/17 16:44 DORIS RODRIGUEZ Feb 16, 2017 18:07
[2017-02-16 18:27] VITALS: BP 125/64
[2017-02-16 20:00] VITALS: BP 141/75
[2017-02-16] MEDS: Docusate 100mg cap ORAL SCH (20:27)
[2017-02-16] MEDS: Heparin 5000 units/ml inj SUBQ SCH (20:27)
[2017-02-17] VITALS: BP 138/67
--- NOTE | 2017-02-17 00:17 | Consultation ---
DATE OF CONSULTATION: 02/16/2017 INFECTIOUS DISEASE CONSULTATION CONSULTING PHYSICIAN: Nelson Roman M.D. ATTENDING PHYSICIAN: Genaro Holley M.D. I was asked by Dr. Rodriguez, Dr. Holley's associate to see this patient. REASON FOR CONSULTATION: Right foot and leg cellulitis and possible right foot abscess, sepsis, elevated white count, fever, and SIRS criteria. CHIEF COMPLAINT: The patient's chief complaint coming in is cellulitis. HISTORY OF PRESENT ILLNESS: This is a very pleasant 31-year-old female, who has a history of what looks like possible cellulitis, was given Keflex and Bactrim in the ER prior two to three weeks ago. She noticed that she had initial improvement, then subsequent worsening of the right foot and leg with regards to pain and swelling. She also noted possibly drainage from her right foot area. She thought she could have had a spider bite initially. The patient presents to [facility] with white count of 19,000, fevers and likely septic. Clinically, she could have a right foot abscess. No obvious necrotizing fasciitis at this time. The patient also has a positive urinalysis and previous urinalysis did show trichomonas. Case was discussed with Dr. Rodriguez. A CT scan was been ordered for ALICIA of the right leg and foot. The patient was started on broad-spectrum antibiotics, vancomycin, Rocephin, and Flagyl. MAR was noted. Orders were noted. Notes were reviewed. PAST MEDICAL HISTORY: Otherwise unremarkable. No history of diabetes or hypertension. She does have a history of lymphedema. ALLERGIES: No known drug allergies. MEDICATIONS: The patient was placed on vancomycin, Rocephin, and Flagyl. She is on heparin, docusate, and Colace. She is on hydrocodone. She is on morphine sulfate, bisacodyl, MiraLAX, Zofran, zolpidem, and Ambien. She is on Zofran, Benadryl, Mylanta, vancomycin will be dosed by pharmacy, cefepime, Flagyl, antibiotics. FAMILY HISTORY: Noncontributory. SOCIAL HISTORY: Positive for smoking. No alcohol or drug use. REVIEW OF SYSTEMS: CONSTITUTIONAL: The patient has generalized weakness, fatigue, fevers, and chills. HEAD AND NECK: No head pain, neck pain, thrush, or dysphagia. CARDIAC: No chest pain. GASTROINTESTINAL: No nausea, vomiting, or diarrhea. GENITOURINARY: No significant dysuria, frequency, or CVA tenderness. PULMONARY: No congestion or short of breath. SKIN: No rash. No obvious seizures. EXTREMITIES: She has severe right foot pain and right leg pain more so of the right foot. NEUROLOGIC: No seizures. No rash or itching. PHYSICAL EXAMINATION: VITAL SIGNS: Temperature maximum 102.7, pulse rate 105, respiratory rate 26, blood pressure 102/66, and saturation 99%. T-max is 102.7. GENERAL: Alert and responsive. Oriented x3. No acute distress. HEAD AND NECK: Oral exam, no thrush. Eye exam, no icterus. Normocephalic. No facial droop. NECK: Supple. HEART: Regular. No obvious gallop or murmur. Tachycardic. ABDOMEN: Soft. Positive bowel sounds. Nontender. LUNGS: Clear bilaterally. No rhonchi or rales. SKIN: No rash or dermatitis. MUSCULOSKELETAL: No evidence of septic arthritis. Lower extremity exam, she has right leg swelling more than the left. No evidence of fluctuance in the right leg. The right foot exam has possible fluctuance that she has a severe right foot pain on palpation. It is unclear if she has initial draining wound. There is no drainage from the wound at this time, but she did say she had pus and a small wound in the right foot. No gangrene noted. No evidence of necrotizing fasciitis at this time was noted. GENITOURINARY: No Hodges. Line sites without phlebitis. NEUROLOGIC: Intact. Nonfocal. Alert and oriented x3. LABORATORY DATA: Laboratory data is as follows, white count is 19.2 and hemoglobin 11.6. Creatinine is normal at 1.1. Sodium 134. IMAGING STUDIES: A CT scan of the leg and foot has been ordered. Cultures have been ordered. Urinalysis had 3+ leukocyte esterase, 10 to 15 white blood cells, and moderate bacteria. test is negative. Previous urinalysis had Trichomonas noted. ASSESSMENT AND PLAN: 1. The patient has right foot and leg cellulitis, possible right foot abscess. At this time, no evidence of necrotizing fasciitis. The patient has a high risk for Methicillin-resistant Staphylococcus aureus infection with history of spider bite, must also consider group A Streptococcus or Streptococcus pyogenes in addition to Methicillin-resistant Staphylococcus aureus. It is unclear if she also has a urinary tract infection versus previous Trichomonas vaginalis or cervicitis. Continue vancomycin, Rocephin, and Flagyl. Check CT scan of the foot and leg and the patient may need surgical debridement especially if there is evidence of abscess on the CT scan. Check blood cultures. Check followup labs. Watch creatinine closely. Watch white cell count. 2. History of lymphedema. 3. No history of diabetes or hypertension. 4. History of what looks like a Trichomonas vaginalis on urinalysis. We will continue Flagyl and also possibly urinary tract infection. She is on cefepime. 5. No known allergies. 6. Social history is positive for smoking. 7. Family history is noncontributory. 8. MAR was noted. 9. Case was discussed with RN. 10. Notes and records were noted. 11. Case was discussed with Dr. Rodriguez. 12. Continue treatment with primary consultants. Nelson Roman M.D. DR: RANDI JOB#: [id number] CC:
[2017-02-17] MEDS: Vancomycin 1.5gm/D5W 250ml 250 ML IVPB SCH ×2 (04:18→15:31)
[2017-02-17] MEDS: Cefepime HCl 2 GM in D5W 110 ML IVPB SCH ×2 (06:04→20:39)
[2017-02-17 06:29] LABS: MEAN CORPUSCULAR HGB CONC 33.1 G/DL (32.0-36.0); MEAN CORPUSCULAR VOLUME 82 FL (80-99); MEAN PLATELET VOLUME 8.3 FL (6.5-10.1); PLATELET COUNT 144 K/UL (150-450); RED BLOOD COUNT 3.58 M/UL (4.20-5.40); RED CELL DISTRIBUTION WIDTH 14.7 % (11.6-14.8); WHITE BLOOD COUNT 14.8 K/UL (4.8-10.8)
[2017-02-17 07:09] LABS: ANION GAP 9 (5-15); CALCIUM 7.9 MG/DL (8.5-10.1); CARBON DIOXIDE 22 MMOL/L (21-32); CHLORIDE 102 MMOL/L (98-107); CREATININE 1.2 MG/DL (0.55-1.30); GLOMERULAR FILTRATION RATE 52.4 mL/min (>60); POTASSIUM 2.9 MMOL/L (3.5-5.1); SODIUM 133 MMOL/L (136-145)
[2017-02-17 08:00] VITALS: BP 103/64
--- NOTE | 2017-02-17 08:33 | Diagnostic Imaging Report ---
Indication: Right lower leg and foot swelling cellulitis, suspected abscess Technique: IV administration nonionic contrast. Spiral acquisitions obtained through the right leg and foot Multiplanar reconstructions were generated. Total dose length product 870 mGycm. CTDIvol(s) 15 mGy. Radiation dose was minimized using automated exposure control Comparison: None Findings: There is considerable edema of the right lower extremity. This is circumferential but particularly pronounced anteriorly and dorsally. Edema primarily involves the skin and subcutaneous fat, but within the distal leg and foot there is evidence of some involvement of the muscular compartment as well. No discrete collection to suggest abscess is demonstrated. There is a small soft tissue ulcer in the anterolateral aspect of the ankle. The bones are unremarkable. There is no evidence of osseous erosion or other findings to suggest acute osteomyelitis. No fractures. The visualized arteries and veins are all patent Impression: Considerable soft tissue edema of the right lower extremity, as described there is appearance nonspecific as regards etiology but likely related to stated clinical history of lymphedema and superimposed cellulitis. Small anterolateral soft tissue ulcer in the ankle No findings to suggest abscess This agrees with the preliminary interpretation provided overnight by [facility] teleradiology service. The CT scanner at [facility] is accredited by the [employer] and the scans are performed using protocols designed to limit radiation exposure to as low as reasonably achievable to attain images of sufficient resolution adequate for diagnostic evaluation.
[2017-02-17 09:00] VITALS: BP 103/64
[2017-02-17 09:13] LABS: BAND NEUTROPHILS % (MANUAL) 1 % (0-8); BASOPHILS % (MANUAL) 0 % (0-2); EOSINOPHILS % (MANUAL) 0 % (0-3); HYPOCHROMASIA 1+; LYMPHOCYTES % (MANUAL) 4 % (20-45); NEUTROPHILS % (MANUAL) 92 % (45-75); PLATELET ESTIMATE ADEQUATE; PLATELET MORPHOLOGY NORMAL; TOTAL CELLS COUNTED 100
[2017-02-17] MEDS: Norco 10mg/325mg tab ORAL PRN ×3 (09:43→20:41)
[2017-02-17] MEDS: Docusate 100mg cap ORAL SCH ×2 (09:43→20:39)
[2017-02-17] MEDS: Heparin 5000 units/ml inj SUBQ SCH ×2 (09:44→20:41)
--- NOTE | 2017-02-17 10:43 | Infectious Diseases Prog Note ---
Assessment/Plan Assessment/Plan A) 1) right foot cellulitis, right leg cellulitis, sepsis, leukocytosis, fevers - ct without obvious abscess, + soft tissue edema/swelling, d/w Radiology - continue vancomycin, cefepime and flagyl - check cultures and labs - leukocytosis better but still febrile 2) possible uti, possible trichomonas vaginalis/cervicitis - on abx, check uc 3) pmh o/w negative 4) + smoking hx, fh-nc, mar noted, notes and records noted 5) allergies - negative 6) d/w RN P) 1) vancomycin, cefepime and flagyl 2) watch labs, check cultures 3) still may need surgery evaluation 4) d/w Dr. Rodriguez 5) d/w patient Subjective Constitutional: Reports: fever HEENT: Denies: congestion Respiratory: Denies: shortness of breath Cardiovascular: Denies: chest pain Gastrointestinal/Abdominal: Denies: nausea, vomiting, diarrhea Genitourinary: Reports: other - + vieira Neurologic: Denies: headache Psychiatric: Denies: depression Skin: Denies: rash Hematologic: Denies: bleeding Musculoskeletal: Reports: pain - + right leg and foot pain Allergies: Coded Allergies: No Known Allergies (Unverified , 01/30/17) Objective Vital Signs Last 24 Hour Vital Signs Date Time Temp Pulse Resp B/P (MAP) Pulse Ox O2 Delivery O2 Flow Rate FiO2 02/17/17 10:31 101.7 02/17/17 09:48 101.7 02/17/17 09:00 101.8 101 20 103/64 98 Room Air 02/17/17 08:00 101.8 101 20 103/64 98 Room Air 02/17/17 00:00 99.5 109 20 138/67 98 Room Air 02/16/17 20:00 101.8 106 21 141/75 99 Room Air 02/16/17 18:54 101.8 02/16/17 18:27 101.8 106 21 125/64 100 Room Air 02/16/17 16:50 100.2 105 26 102/66 99 Room Air 02/16/17 16:39 100.2 02/16/17 16:21 100.2 105 26 102/66 99 Room Air 02/16/17 14:57 102.0 02/16/17 14:57 102.0 02/16/17 13:55 102.7 103 26 116/60 97 Room Air 02/16/17 13:05 102.7 125 26 105/65 97 Room Air Height (Feet): 5 Height (Inches): 3.00 Weight (Pounds): 230 General Appearance: no acute distress HEENT: normocephalic, atraumatic, anicteric, mucous membranes moist, EOMI, pharynx normal, supple, no JVD Respiratory/Chest: lungs clear, normal breath sounds, no respiratory distress, no accessory muscle use Cardiovascular: normal rate, no gallop/murmur, no JVD Abdomen: normal bowel sounds, soft, non tender, no organomegaly, non distended Genitourinary: other - no vieira Extremities: no cyanosis, other - rigth leg and foot pain noted Skin: no rash Neurologic/Psychiatric: tongue binder II-XII grossly normal, alert, oriented x 3, responsive Lymphatic: no groin adenopathy Musculoskeletal: no effusion, other - no septic arthritis Objective Impression: Considerable soft tissue edema of the right lower extremity, as described there is appearance nonspecific as regards etiology but likely related to stated clinical history of lymphedema and superimposed cellulitis. Small anterolateral soft tissue ulcer in the ankle No findings to suggest abscess This agrees with the preliminary interpretation provided overnight by [facility] service. pending Laboratory Tests Test 02/16/17 13:25 02/16/17 14:50 02/17/17 05:10 White Blood Count 19.2 K/UL (4.8-10.8) H 14.8 K/UL (4.8-10.8) H Red Blood Count 4.54 M/UL (4.20-5.40) 3.58 M/UL (4.20-5.40) L Hemoglobin 11.6 G/DL (12.0-16.0) L 9.7 G/DL (12.0-16.0) L Hematocrit 37.3 % (37.0-47.0) 29.2 % (37.0-47.0) L Mean Corpuscular Volume 82 FL (80-99) 82 FL (80-99) Mean Corpuscular Hemoglobin 25.6 PG (27.0-31.0) L 27.0 PG (27.0-31.0) Mean Corpuscular Hemoglobin Concent 31.1 G/DL (32.0-36.0) L 33.1 G/DL (32.0-36.0) Red Cell Distribution Width 14.5 % (11.6-14.8) 14.7 % (11.6-14.8) Platelet Count 214 K/UL (150-450) 144 K/UL (150-450) L Mean Platelet Volume 9.6 FL (6.5-10.1) 8.3 FL (6.5-10.1) Neutrophils (%) (Auto) % (45.0-75.0) % (45.0-75.0) Lymphocytes (%) (Auto) % (20.0-45.0) % (20.0-45.0) Monocytes (%) (Auto) % (1.0-10.0) % (1.0-10.0) Eosinophils (%) (Auto) % (0.0-3.0) % (0.0-3.0) Basophils (%) (Auto) % (0.0-2.0) % (0.0-2.0) Differential Total Cells Counted 100 100 Neutrophils % (Manual) 92 % (45-75) H 92 % (45-75) H Lymphocytes % (Manual) 4 % (20-45) L 4 % (20-45) L Monocytes % (Manual) 1 % (1-10) 3 % (1-10) Eosinophils % (Manual) 0 % (0-3) 0 % (0-3) Basophils % (Manual) 0 % (0-2) 0 % (0-2) Band Neutrophils 3 % (0-8) 1 % (0-8) Platelet Estimate Adequate Adequate Platelet Morphology Normal Normal Polychromasia 1+ Anisocytosis 1+ Sodium Level 134 MMOL/L (136-145) L 133 MMOL/L (136-145) L Potassium Level 3.4 MMOL/L (3.5-5.1) L 2.9 MMOL/L (3.5-5.1) L Chloride Level 101 MMOL/L (98-107) 102 MMOL/L (98-107) Carbon Dioxide Level 24 MMOL/L (21-32) 22 MMOL/L (21-32) Anion Gap 9 (5-15) 9 (5-15) Blood Urea Nitrogen 14 mg/dL (7-18) 12 mg/dL (7-18) Creatinine 1.1 MG/DL (0.55-1.30) 1.2 MG/DL (0.55-1.30) Estimat Glomerular Filtration Rate 58.0 mL/min (>60) 52.4 mL/min (>60) Glucose Level 95 MG/DL (74-106) 93 MG/DL (74-106) Lactic Acid Level 1.40 mmol/L (0.66-2.22) Calcium Level 9.4 MG/DL (8.5-10.1) 7.9 MG/DL (8.5-10.1) L Total Bilirubin 0.7 MG/DL (0.2-1.0) Aspartate Amino Transf (AST/SGOT) 22 U/L (15-37) Alanine Aminotransferase (ALT/SGPT) 15 U/L (12-78) Alkaline Phosphatase 60 U/L (46-116) Total Protein 7.9 G/DL (6.4-8.2) Albumin 3.6 G/DL (3.4-5.0) Globulin 4.3 g/dL Albumin/Globulin Ratio 0.8 (1.0-2.7) L Urine Color Pale yellow Urine Appearance Slightly cloudy Urine pH 6.5 (4.5-8.0) Urine Specific [place] 1.005 (1.005-1.035) Urine Protein Negative (NEGATIVE) Urine Glucose (UA) Negative (NEGATIVE) Urine Ketones Negative (NEGATIVE) Urine Occult Blood 4+ (NEGATIVE) H Urine Nitrite Negative (NEGATIVE) Urine Bilirubin Negative (NEGATIVE) Urine Urobilinogen Normal MG/DL (0.0-1.0) Urine Leukocyte Esterase 3+ (NEGATIVE) H Urine RBC 10-15 /HPF (0 - 2) H Urine WBC 10-15 /HPF (0 - 2) H Urine Squamous Epithelial Cells Moderate /LPF (NONE/OCC) H Urine Bacteria Moderate /HPF (NONE) H Urine HCG, Qualitative Negative Hypochromasia 1+ Phosphorus Level Pending Magnesium Level 1.0 MG/DL (1.8-2.4) L Iron Level Pending Unsaturated Iron Binding Pending Ferritin Pending Current Medications Medications (Trade) Dose Ordered Sig/Zane Route PRN Reason Start Time Stop Time Status Last Admin Dose Admin Acetaminophen (Tylenol) 650 mg Q4H PRN ORAL Mild Pain (Pain Scale 1-3) 02/16/17 16:45 03/18/17 16:44 02/17/17 08:49 Acetaminophen/ Hydrocodone Bitart ([place] 10/325) 1 ea Q4H PRN ORAL severe pain 02/16/17 17:00 02/23/17 16:59 02/17/17 09:43 Acetaminophen/ Hydrocodone Bitart ([place] 5/325) 1 tab Q4H PRN ORAL Moderate Pain (Pain Scale 4-6) 02/16/17 17:00 02/23/17 16:59 02/17/17 04:41 Al Hydroxide/Mg Hydroxide (Mylanta II) 30 ml Q6H PRN ORAL dyspepsia 02/16/17 16:45 03/18/17 16:44 Bisacodyl (Dulcolax) 10 mg HSPRN PRN RECTAL Constipation Second Line Agent 02/16/17 16:45 03/18/17 16:44 Cefepime HCl 2 gm/ Dextrose 110 ml @ 220 mls/hr Q12HR@0600,1800 IVPB 02/16/17 18:00 02/23/17 17:59 02/17/17 06:04 Dextrose (Dextrose 50%) STAT PRN IV Hypoglycemia 02/16/17 16:45 03/18/17 16:44 Diphenhydramine HCl (Benadryl) 25 mg Q6H PRN ORAL Itching/Pruritis 02/16/17 16:45 03/18/17 16:44 Docusate Sodium (Colace) 100 mg EVERY 12 HOURS ORAL 02/16/17 21:00 03/18/17 20:59 02/17/17 09:43 Heparin Sodium (Porcine) (Heparin 5000 units/ml) 5,000 units EVERY 12 HOURS SUBQ 02/16/17 21:00 03/18/17 20:59 02/16/17 20:27 Magnesium Sulfate 100 ml @ 100 mls/hr Q1H IVPB 02/17/17 11:00 02/17/17 14:59 Metronidazole 100 ml @ 100 mls/hr Q8HR IVPB 02/16/17 20:00 02/23/17 19:59 02/17/17 06:47 Morphine Sulfate (Morphine Sulfate) 4 mg Q4H PRN IVP breakthrough pain 02/16/17 17:00 02/23/17 16:59 Ondansetron HCl (Zofran) 4 mg Q6H PRN IVP Nausea & Vomiting 02/16/17 16:45 03/18/17 16:44 Polyethylene Glycol (Miralax) 17 gm HSPRN PRN ORAL Constipation First Line Agent 02/16/17 16:45 03/18/17 16:44 Potassium Chloride (K-Dur) 60 meq ONCE ONCE ORAL 02/17/17 11:00 02/17/17 11:01 Sodium Chloride 1,000 ml @ 100 mls/hr Q10H IV 02/17/17 12:00 03/19/17 11:59 Vancomycin HCl (Vanco rx to dose) 1 ea DAILY PRN MISC Per rx protocol 02/16/17 16:45 03/18/17 16:44 Vancomycin HCl/ Dextrose 250 ml @ 125 mls/hr Q12HR@0200,1400 IVPB 02/17/17 02:00 02/22/17 01:59 02/17/17 04:18 Zolpidem Tartrate (Ambien) 5 mg HSPRN PRN ORAL Insomnia 02/16/17 16:45 02/23/17 16:44 DORIS RODRIGUEZ Feb 17, 2017 10:43
[2017-02-17 10:50] LABS: IRON 8 ug/dL (50-175); TOTAL IRON BINDING CAPACITY 239 ug/dL (250-450)
[2017-02-17 11:10] LABS: FERRITIN 84 NG/ML (8-388)
[2017-02-17] MEDS: Morphine Sulfate 4mg/ml Inj IVP PRN ×2 (11:13→18:17)
[2017-02-17] MEDS: NS w/KCl 40mEq 1,000 ML IV SCH ×2 (11:55→22:00)
[2017-02-17 12:00] VITALS: BP 116/53
[2017-02-17 15:47] VITALS: BP 114/66
[2017-02-17 20:00] VITALS: BP 119/59
--- NOTE | 2017-02-17 23:37 | General Progress Note ---
Assessment/Plan Problem List: (1) Sepsis ICD Codes: A41.9 - Sepsis, unspecified organism SNOMED: 47539061 (2) Cellulitis of right lower extremity ICD Codes: L03.115 - Cellulitis of right lower limb SNOMED: 849684048 (3) UTI (urinary tract infection) ICD Codes: N39.0 - Urinary tract infection, site not specified SNOMED: 91403637 (4) Trichomonal vaginitis ICD Codes: A59.01 - Trichomonal vulvovaginitis SNOMED: 035431818 (5) Hypokalemia ICD Codes: E87.6 - Hypokalemia SNOMED: 47055049 (6) Hyponatremia ICD Codes: E87.1 - Hypo-osmolality and hyponatremia SNOMED: 59671329 (7) Hypomagnesemia ICD Codes: E83.42 - Hypomagnesemia SNOMED: 931733174 (8) Gram-positive cocci bacteremia ICD Codes: R78.81 - Bacteremia SNOMED: 944711401, 592790432092 Status: stable Assessment/Plan Appreciate ID consult Empiric vanco and cefepime (02/16-) Cont flagyl to cover trichomonas seen on prior U/A (02/16-) F/u blood cultures--GPC Repeat blood cultures F/u wound culture F/u urine culture Check BLE venous duplex Check CT foot and RLE to eval for underlying abscess --> no e/o abscess Pain control, bowel regimen Supportive care Replete lytes [employer] on smoking cessation FULL CODE D/w pt, RN, ID regarding mgmt and dispo Subjective Date patient seen: Feb 17, 2017 Time patient seen: 16:00 ROS Limited/Unobtainable: No Constitutional: Reports: chills, fever, malaise, weakness HEENT: Reports: no symptoms Cardiovascular: Reports: no symptoms Respiratory: Reports: no symptoms Gastrointestinal/Abdominal: Reports: no symptoms Genitourinary: Reports: no symptoms Neurologic/Psychiatric: Reports: no symptoms Endocrine: Reports: no symptoms Hematologic/Lymphatic: Reports: no symptoms Allergies: Coded Allergies: No Known Allergies (Unverified , 01/30/17) Subjective Blood culture w/ GPC Cont to be febrile, [address] R foot showed no e/o abscess Pt cont w/ weakness, fevers/chills, poor appetite Cont w/ R foot swelling/pain. Redness improving. No drainage Objective Last 24 Hour Vital Signs Date Time Temp Pulse Resp B/P (MAP) Pulse Ox O2 Delivery O2 Flow Rate FiO2 02/17/17 21:40 100.0 02/17/17 21:39 100.0 02/17/17 15:47 102.6 107 21 114/66 100 Room Air 02/17/17 12:00 100.6 95 20 116/53 97 Room Air 02/17/17 10:31 101.7 02/17/17 09:00 101.8 101 20 103/64 98 Room Air 02/17/17 08:00 101.8 101 20 103/64 98 Room Air 02/17/17 00:00 99.5 109 20 138/67 98 Room Air Intake and Output 02/17/17 02/18/17 19:00 07:00 Intake Total 550 ml 510 ml Balance 550 ml 510 ml IV Total 550 ml 510 ml # Voids 1 Laboratory Tests 02/17/17 05:10: White Blood Count 14.8H, Red Blood Count 3.58L, Hemoglobin 9.7L, Hematocrit 29.2L, Mean Corpuscular Volume 82, Mean Corpuscular Hemoglobin 27.0, Mean Corpuscular Hemoglobin Concent 33.1, Red Cell Distribution Width 14.7, Platelet Count 144L, Mean Platelet Volume 8.3, Neutrophils (%) (Auto) , Lymphocytes (%) ( Auto) , Monocytes (%) (Auto) , Eosinophils (%) (Auto) , Basophils (%) (Auto) , Differential Total Cells Counted 100, Neutrophils % (Manual) 92H, Lymphocytes % (Manual) 4L, Monocytes % (Manual) 3, Eosinophils % (Manual) 0, Basophils % ( Manual) 0, Band Neutrophils 1, Platelet Estimate Adequate, Platelet Morphology Normal, Hypochromasia 1+, Sodium Level 133L, Potassium Level 2.9L, Chloride Level 102, Carbon Dioxide Level 22, Anion Gap 9, Blood Urea Nitrogen 12, Creatinine 1.2, Estimat Glomerular Filtration Rate 52.4, Glucose Level 93, Calcium Level 7.9L, Phosphorus Level 1.6L, Magnesium Level 1.0L, Iron Level 8L, Total Iron Binding Capacity 239L, Percent Iron Saturation 3L, Unsaturated Iron Binding 231, Ferritin 84 02/17/17 12:55: Vancomycin Level Trough 9.6 Height (Feet): 5 Height (Inches): 3.00 Weight (Pounds): 230 Objective General: alert, cooperative, no distress, appears stated age Head: normocephalic, without obvious abnormality, atraumatic Eyes: conjunctivae/corneas clear. PERRL, EOM's intact Throat: lips, mucosa, and tongue normal. MMM Neck: supple, symmetrical, trachea midline, and no JVD Lungs: clear to auscultation bilaterally Heart: regular rate and rhythm, S1, S2 normal, no murmur, click, rub or gallop Abdomen: soft, non-tender, non-distended, bowel sounds normal; no masses or organomegaly Extremities: Right lower extremity with 3+ edema/erythema/TTP from the dorsum of the foot to the distal third calf. With open abrasion on dorsum of R foot that is wet but without edil purulent drainage Pulses: 2+ and symmetric Skin: skin color, texture, turgor normal; no rashes or lesions Neurologic: grossly normal, no focal deficits Michael Sevilla M.D. Feb 17, 2017 23:37
[2017-02-18] VITALS (7 sets, daily range): BP systolic 103–132; BP diastolic 56–86
[2017-02-18] MEDS: Vancomycin 1.5gm/D5W 250ml 250 ML IVPB SCH ×2 (01:35→15:21)
[2017-02-18] MEDS: Cefepime HCl 2 GM in D5W 110 ML IVPB SCH ×2 (04:28→17:42)
[2017-02-18 07:14] LABS: MEAN CORPUSCULAR HGB CONC 31.7 G/DL (32.0-36.0); MEAN CORPUSCULAR VOLUME 82 FL (80-99); MEAN PLATELET VOLUME 8.9 FL (6.5-10.1); PLATELET COUNT 128 K/UL (150-450); RED BLOOD COUNT 3.55 M/UL (4.20-5.40); RED CELL DISTRIBUTION WIDTH 14.8 % (11.6-14.8); WHITE BLOOD COUNT 9.1 K/UL (4.8-10.8)
[2017-02-18 07:49] LABS: ANION GAP 8 (5-15); CARBON DIOXIDE 21 MMOL/L (21-32); CHLORIDE 102 MMOL/L (98-107); POTASSIUM 3.8 MMOL/L (3.5-5.1); SODIUM 131 MMOL/L (136-145)
[2017-02-18 07:50] LABS: CALCIUM 8.2 MG/DL (8.5-10.1); GLOMERULAR FILTRATION RATE > 60 mL/min (>60); MAGNESIUM 1.9 MG/DL (1.8-2.4); PHOSPHORUS 1.6 MG/DL (2.5-4.9)
--- NOTE | 2017-02-18 07:56 | Cardiology Report ---
APPROVED REPORT EXAM: Two-dimensional and M-mode echocardiogram with Doppler and color Doppler. INDICATION Vegetations M-Mode DIMENSIONS IVSd1.3 (0.7-1.1cm)Left Atrium (MM)3.6 (1.6-4.0cm) LVDd5.4 (3.5-5.6cm)Aortic Root2.6 (2.0-3.7cm) PWd0.9 (0.7-1.1cm)Aortic Cusp Exc.1.9 (1.5-2.0cm) LVDs3.5 (2.5-4.0cm) PWs1.6 cm Normal left ventricular chamber size, systolic function and wall motion. Left ventricular ejection fraction estimated to be 60 %. Mild left ventricular hypertrophy. Anterior Echo-free space, may be due to pericardial fat or effusion. All other cardiac chamber sizes are within normal limits. Normal appearing aortic, mitral, pulmonic and tricuspid valves. No mitral annulus and aortic root calcification. IVC dilated at 2.0 cm with physiological collapse, estimated RAP is 10 mmHg. No discrete vegetations seen, however SBE may not be excluded by transthoracic 2-D echo. Consider MONY if clinically indicated. A color flow and spectral Doppler study was performed and revealed: No aortic insufficiency. No mitral regurgitation. Mitral inflow indicate normal left ventricular diastolic function. Mild tricuspid regurgitation. Tricuspid systolic velocities suggests peak right ventricular systolic pressure of 38 mmHg, consistent with mild pulmonary hypertension. Trace pulmonic regurgitation present.
[2017-02-18] MEDS: Docusate 100mg cap ORAL SCH ×2 (08:05→20:44)
[2017-02-18] MEDS: NS w/KCl 40mEq 1,000 ML IV SCH ×2 (08:06→17:42)
[2017-02-18] MEDS: Norco 10mg/325mg tab ORAL PRN ×2 (08:06→20:46)
[2017-02-18] MEDS: Heparin 5000 units/ml inj SUBQ SCH ×2 (08:07→20:47)
[2017-02-18] MEDS ORDERED: Ketorolac 30mg Inj IV ONE (09:30)
[2017-02-18 09:50] LABS: ANISOCYTOSIS 1+; BAND NEUTROPHILS % (MANUAL) 8 % (0-8); BASOPHILS % (MANUAL) 0 % (0-2); EOSINOPHILS % (MANUAL) 1 % (0-3); LYMPHOCYTES % (MANUAL) 2 % (20-45); NEUTROPHILS % (MANUAL) 88 % (45-75); PLATELET ESTIMATE DECREASED; PLATELET MORPHOLOGY NORMAL; TOTAL CELLS COUNTED 100
--- NOTE | 2017-02-18 10:56 | Diagnostic Imaging Report ---
Indication: Headache Technique: Contiguous 5 mm thick transaxial imaging of the head obtained in a Siemens Sensation [address] scanner. Soft tissue and bone windows generated. Total Dose length Product (DLP): [address] Dose Index Volume (CTDIvol): 70.38, 0.15 mGy Comparison: none Findings: The size and configuration of the cortical sulci, basal cisterns, and ventricles are within normal limits for age. There is no mass effect, midline shift, or edema identified. There is no evidence of acute hemorrhage or abnormal intra-axial or extra-axial fluid collections. The bones and soft tissues are unremarkable. Impression: No mass effect, edema or acute bleed. The CT scanner at [facility] is accredited by the [place] [employer] and the scans are performed using dose optimization techniques as appropriate to a performed exam including Automatic Exposure control.
[2017-02-18] MEDS ORDERED: Sodium Phosphate 30 MM in NS 275 ML IVPB ONE (11:00)
[2017-02-18] MEDS ORDERED: Tubing IV Secondary IV ONE (16:09)
--- NOTE | 2017-02-18 18:18 | Infectious Diseases Prog Note ---
Assessment/Plan Assessment/Plan A) 1) staph aureus right foot cellulitis/wound infection, right leg cellulitis, sepsis, leukocytosis, fevers - clinically improved - ct without obvious abscess, + soft tissue edema/swelling, d/w Radiology - continue vancomycin, discontinue other abx - watch labs, check sensitivities of staph aureus - leukocytosis better but still febrile, less febrile overall today - consider surgery evaluation if persistently febrile - d/w Dr. Rodriguez 2) possible uti, possible trichomonas vaginalis/cervicitis - s/p flagyl 3) pmh o/w negative 4) + smoking hx, fh-nc, mar noted, notes and records noted 5) allergies - negative 6) d/w RN P) 1) vancomycin, cefepime and flagyl 2) watch labs, check cultures 3) still may need surgery evaluation 4) d/w Dr. Rodriguez 5) d/w patient Subjective Constitutional: Reports: other - fever earlier but not now HEENT: Denies: dysphagia Respiratory: Denies: shortness of breath Cardiovascular: Denies: chest pain Gastrointestinal/Abdominal: Denies: nausea, vomiting, diarrhea Genitourinary: Reports: other - no vieira, Denies: dysuria, hematuria, frequency Neurologic: Denies: headache Psychiatric: Denies: depression Skin: Denies: rash Hematologic: Denies: bleeding Musculoskeletal: Denies: pain Allergies: Coded Allergies: No Known Allergies (Unverified , 01/30/17) Objective Vital Signs Last 24 Hour Vital Signs Date Time Temp Pulse Resp B/P (MAP) Pulse Ox O2 Delivery O2 Flow Rate FiO2 02/18/17 16:00 97.6 76 20 125/56 100 Room Air 02/18/17 12:05 97.9 82 20 129/68 100 Room Air 02/18/17 08:07 98.8 97 20 105/62 100 Room Air 02/18/17 05:51 98.6 02/18/17 04:25 102.2 102 18 103/61 100 Room Air 02/18/17 00:00 102.0 100 21 119/64 99 Room Air 02/17/17 21:40 100.0 02/17/17 21:39 100.0 02/17/17 20:00 102.2 99 20 119/59 94 Room Air Height (Feet): 5 Height (Inches): 3.00 Weight (Pounds): 230 General Appearance: no acute distress HEENT: normocephalic, mucous membranes moist, EOMI, pharynx normal, supple, no JVD Respiratory/Chest: lungs clear, normal breath sounds, no respiratory distress, no accessory muscle use Cardiovascular: normal rate, regular rhythm, no gallop/murmur, no JVD Abdomen: normal bowel sounds, soft, non tender, no organomegaly, non distended Genitourinary: other - no vieira Extremities: no cyanosis, other - less leg and foot edema and pain Skin: no rash Neurologic/Psychiatric: metal spinner II-XII grossly 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 Small anterolateral soft tissue ulcer in the ankle No findings to suggest abscess This agrees with the preliminary interpretation provided overnight by [facility] teleradiology service. Microbiology Date/Time Source Procedure Growth Status 02/16/17 13:30 Blood Blood Culture - Preliminary Resulted 02/16/17 13:20 Blood Blood Culture - Preliminary NO GROWTH AFTER 24 HOURS Resulted 02/16/17 14:50 Urine,Clean Catch Urine Culture - Preliminary Mixed Gram Positive Organism Resulted 02/16/17 22:00 Foot Left Gram Stain - Final Resulted 02/16/17 22:00 Wound Culture - Preliminary Staphylococcus Aureus Resulted Laboratory Tests Test 02/18/17 04:30 White Blood Count 9.1 K/UL (4.8-10.8) Red Blood Count 3.55 M/UL (4.20-5.40) L Hemoglobin 9.2 G/DL (12.0-16.0) L Hematocrit 29.1 % (37.0-47.0) L Mean Corpuscular Volume 82 FL (80-99) Mean Corpuscular Hemoglobin 26.0 PG (27.0-31.0) L Mean Corpuscular Hemoglobin Concent 31.7 G/DL (32.0-36.0) L Red Cell Distribution Width 14.8 % (11.6-14.8) Platelet Count 128 K/UL (150-450) L Mean Platelet Volume 8.9 FL (6.5-10.1) Neutrophils (%) (Auto) % (45.0-75.0) Lymphocytes (%) (Auto) % (20.0-45.0) Monocytes (%) (Auto) % (1.0-10.0) Eosinophils (%) (Auto) % (0.0-3.0) Basophils (%) (Auto) % (0.0-2.0) Differential Total Cells Counted 100 Neutrophils % (Manual) 88 % (45-75) H Lymphocytes % (Manual) 2 % (20-45) L Monocytes % (Manual) 1 % (1-10) Eosinophils % (Manual) 1 % (0-3) Basophils % (Manual) 0 % (0-2) Band Neutrophils 8 % (0-8) Platelet Estimate Decreased L Platelet Morphology Normal Anisocytosis 1+ Sodium Level 131 MMOL/L (136-145) L Potassium Level 3.8 MMOL/L (3.5-5.1) Chloride Level 102 MMOL/L (98-107) Carbon Dioxide Level 21 MMOL/L (21-32) Anion Gap 8 (5-15) Blood Urea Nitrogen 8 mg/dL (7-18) Creatinine 1.0 MG/DL (0.55-1.30) Estimat Glomerular Filtration Rate > 60 mL/min (>60) Glucose Level 108 MG/DL (74-106) H Calcium Level 8.2 MG/DL (8.5-10.1) L Phosphorus Level 1.6 MG/DL (2.5-4.9) L Magnesium Level 1.9 MG/DL (1.8-2.4) Current Medications Medications (Trade) Dose Ordered Sig/Zane Route PRN Reason Start Time Stop Time Status Last Admin Dose Admin Acetaminophen (Tylenol) 650 mg Q4H PRN ORAL Mild Pain (Pain Scale 1-3) 02/16/17 16:45 03/18/17 16:44 02/17/17 20:40 Acetaminophen/ Hydrocodone Bitart ([place] 10/325) 1 ea Q4H PRN ORAL severe pain 02/16/17 17:00 02/23/17 16:59 02/18/17 08:06 Acetaminophen/ Hydrocodone Bitart ([place] 5/325) 1 tab Q4H PRN ORAL Moderate Pain (Pain Scale 4-6) 02/16/17 17:00 02/23/17 16:59 02/17/17 04:41 Al Hydroxide/Mg Hydroxide (Mylanta II) 30 ml Q6H PRN ORAL dyspepsia 02/16/17 16:45 03/18/17 16:44 Bisacodyl (Dulcolax) 10 mg HSPRN PRN RECTAL Constipation Second Line Agent 02/16/17 16:45 03/18/17 16:44 Cefepime HCl 2 gm/ Dextrose 110 ml @ 220 mls/hr Q12HR@0600,1800 IVPB 02/16/17 18:00 02/23/17 17:59 02/18/17 17:42 Dextrose (Dextrose 50%) STAT PRN IV Hypoglycemia 02/16/17 16:45 03/18/17 16:44 Diphenhydramine HCl (Benadryl) 25 mg Q6H PRN ORAL Itching/Pruritis 02/16/17 16:45 03/18/17 16:44 Docusate Sodium (Colace) 100 mg EVERY 12 HOURS ORAL 02/16/17 21:00 03/18/17 20:59 02/18/17 08:05 Heparin Sodium (Porcine) (Heparin 5000 units/ml) 5,000 units EVERY 12 HOURS SUBQ 02/16/17 21:00 03/18/17 20:59 02/16/17 20:27 Metronidazole 100 ml @ 100 mls/hr Q8HR IVPB 02/16/17 20:00 02/23/17 19:59 02/18/17 14:16 Morphine Sulfate (Morphine Sulfate) 4 mg Q4H PRN IVP breakthrough pain 02/16/17 17:00 02/23/17 16:59 02/17/17 18:17 Ondansetron HCl (Zofran) 4 mg Q6H PRN IVP Nausea & Vomiting 02/16/17 16:45 03/18/17 16:44 Polyethylene Glycol (Miralax) 17 gm HSPRN PRN ORAL Constipation First Line Agent 02/16/17 16:45 03/18/17 16:44 Sodium Chloride 1,000 ml @ 100 mls/hr Q10H IV 02/17/17 12:00 03/19/17 11:59 02/18/17 08:06 Vancomycin HCl (Vanco rx to dose) 1 ea DAILY PRN MISC Per rx protocol 02/16/17 16:45 11/10/17 16:44 Vancomycin HCl/ Dextrose 250 ml @ 125 mls/hr Q12HR@0200,1400 IVPB 02/17/17 02:00 02/22/17 01:59 02/18/17 15:21 Zolpidem Tartrate (Ambien) 5 mg HSPRN PRN ORAL Insomnia 02/16/17 16:45 02/23/17 16:44 DORIS RODRIGUEZ Feb 18, 2017 18:18
--- NOTE | 2017-02-18 19:21 | General Progress Note ---
Assessment/Plan Problem List: (1) Sepsis ICD Codes: A41.9 - Sepsis, unspecified organism SNOMED: 58577571 (2) Cellulitis of right lower extremity ICD Codes: L03.115 - Cellulitis of right lower limb SNOMED: 908463307 (3) UTI (urinary tract infection) ICD Codes: N39.0 - Urinary tract infection, site not specified SNOMED: 32662793 (4) Trichomonal vaginitis ICD Codes: A59.01 - Trichomonal vulvovaginitis SNOMED: 815365912 (5) Hypokalemia ICD Codes: E87.6 - Hypokalemia SNOMED: 95027301 (6) Hyponatremia ICD Codes: E87.1 - Hypo-osmolality and hyponatremia SNOMED: 56739842 (7) Hypomagnesemia ICD Codes: E83.42 - Hypomagnesemia SNOMED: 632106406 (8) Gram-positive cocci bacteremia ICD Codes: R78.81 - Bacteremia SNOMED: 709851188, 819502092579 Status: stable Assessment/Plan Appreciate ID consult Cont vanco (02/16-) s/p cefepime (02/16-02/18) s/p flagyl to cover trichomonas seen on prior U/A (02/16-02/18) F/u blood cultures--GPC F/u repeat blood cultures F/u wound culture--4+ staph aureus F/u urine culture-->mixed org Check BLE venous duplex --> no e/o DVT Check CT foot and RLE to eval for underlying abscess --> no e/o abscess If pt becomes unstable or clinically deteriorates consider surgical eval Pain control, bowel regimen Supportive care Replete lytes Counseled on smoking cessation FULL CODE D/w pt, RN, ID regarding mgmt and dispo Subjective Date patient seen: Feb 18, 2017 Time patient seen: 10:00 ROS Limited/Unobtainable: No Constitutional: Reports: chills, fever, malaise, weakness HEENT: Reports: no symptoms Cardiovascular: Reports: no symptoms Respiratory: Reports: no symptoms Gastrointestinal/Abdominal: Reports: no symptoms Genitourinary: Reports: no symptoms Neurologic/Psychiatric: Reports: headache Endocrine: Reports: no symptoms Hematologic/Lymphatic: Reports: no symptoms Allergies: Coded Allergies: No Known Allergies (Unverified , 01/30/17) Subjective Blood culture w/ GPC Wound culture w/ 4+ staph aureus Fever to 102 this AM WBC downtrending CT R foot showed no e/o abscess Pt cont w/ weakness, fevers/chills, poor appetite Cont w/ R foot swelling/pain. Redness improving. No drainage C/o headache today, frontal Objective Last 24 Hour Vital Signs Date Time Temp Pulse Resp B/P (MAP) Pulse Ox O2 Delivery O2 Flow Rate FiO2 02/18/17 16:00 97.6 76 20 125/56 100 Room Air 02/18/17 12:05 97.9 82 20 129/68 100 Room Air 02/18/17 08:07 98.8 97 20 105/62 100 Room Air 02/18/17 05:51 98.6 02/18/17 04:25 102.2 102 18 103/61 100 Room Air 02/18/17 00:00 102.0 100 21 119/64 99 Room Air 02/17/17 21:40 100.0 02/17/17 21:39 100.0 02/17/17 20:00 102.2 99 20 119/59 94 Room Air Intake and Output 02/18/17 02/19/17 19:00 07:00 Intake Total 1185.0 ml 100 ml Balance 1185.0 ml 100 ml Intake Oral 700 ml IV Total 485.0 ml 100 ml # Voids 3 Laboratory Tests 02/18/17 04:30: White Blood Count 9.1, Red Blood Count 3.55L, Hemoglobin 9.2L, Hematocrit 29.1L , Mean Corpuscular Volume 82, Mean Corpuscular Hemoglobin 26.0L, Mean Corpuscular Hemoglobin Concent 31.7L, Red Cell Distribution Width 14.8, Platelet Count 128L, Mean Platelet Volume 8.9, Neutrophils (%) (Auto) , Lymphocytes (%) (Auto) , Monocytes (%) (Auto) , Eosinophils (%) (Auto) , Basophils (%) (Auto) , Differential Total Cells Counted 100, Neutrophils % ( Manual) 88H, Lymphocytes % (Manual) 2L, Monocytes % (Manual) 1, Eosinophils % ( Manual) 1, Basophils % (Manual) 0, Band Neutrophils 8, Platelet Estimate DecreasedL, Platelet Morphology Normal, Anisocytosis 1+, Sodium Level 131L, Potassium Level 3.8, Chloride Level 102, Carbon Dioxide Level 21, Anion Gap 8, Blood Urea Nitrogen 8, Creatinine 1.0, Estimat Glomerular Filtration Rate > 60, Glucose Level 108H, Calcium Level 8.2L, Phosphorus Level 1.6L, Magnesium Level 1.9 Height (Feet): 5 Height (Inches): 3.00 Weight (Pounds): 230 Objective General: alert, cooperative, no distress, appears stated age Head: normocephalic, without obvious abnormality, atraumatic Eyes: conjunctivae/corneas clear. PERRL, EOM's intact Throat: lips, mucosa, and tongue normal. MMM Neck: supple, symmetrical, trachea midline, and no JVD Lungs: clear to auscultation bilaterally Heart: regular rate and rhythm, S1, S2 normal, no murmur, click, rub or gallop Abdomen: soft, non-tender, non-distended, bowel sounds normal; no masses or organomegaly Extremities: Right lower extremity with 3+ edema/erythema/TTP from the dorsum of the foot to the distal third calf. With open abrasion on dorsum of R foot that is wet but without edil purulent drainage Pulses: 2+ and symmetric Skin: skin color, texture, turgor normal; no rashes or lesions Neurologic: grossly normal, no focal deficits Michael Sevilla M.D. Feb 18, 2017 19:21
[2017-02-19] MEDS: Vancomycin 1.5gm/D5W 250ml 250 ML IVPB SCH ×2 (02:07→16:06)
[2017-02-19] MEDS: NS w/KCl 40mEq 1,000 ML IV SCH ×3 (03:46→21:00)
[2017-02-19 04:07] VITALS: BP 137/72
[2017-02-19 08:00] VITALS: BP 137/77
[2017-02-19] MEDS: Heparin 5000 units/ml inj SUBQ SCH ×2 (08:15→23:15)
[2017-02-19] MEDS: Docusate 100mg cap ORAL SCH ×2 (08:16→23:28)
[2017-02-19 08:50] LABS: BASOPHILS % (AUTO) 0.8 % (0.0-2.0); MEAN CORPUSCULAR HEMOGLOBIN 25.8 PG (27.0-31.0); MEAN CORPUSCULAR HGB CONC 31.8 G/DL (32.0-36.0); MEAN CORPUSCULAR VOLUME 81 FL (80-99); MEAN PLATELET VOLUME 8.7 FL (6.5-10.1); NEUTROPHILS % (AUTO) 83.1 % (45.0-75.0); PLATELET COUNT 126 K/UL (150-450); RED BLOOD COUNT 3.29 M/UL (4.20-5.40); RED CELL DISTRIBUTION WIDTH 15.2 % (11.6-14.8); WHITE BLOOD COUNT 6.3 K/UL (4.8-10.8)
[2017-02-19 09:07] LABS: ANION GAP 8 (5-15); CALCIUM 8.6 MG/DL (8.5-10.1); CARBON DIOXIDE 23 MMOL/L (21-32); CHLORIDE 100 MMOL/L (98-107); CREATININE 0.8 MG/DL (0.55-1.30); GLOMERULAR FILTRATION RATE > 60 mL/min (>60); POTASSIUM 3.6 MMOL/L (3.5-5.1); SODIUM 131 MMOL/L (136-145)
[2017-02-19 09:13] LABS: MAGNESIUM 1.7 MG/DL (1.8-2.4); PHOSPHORUS 2.3 MG/DL (2.5-4.9)
[2017-02-19] MEDS ORDERED: Ketorolac 30mg Inj IV PRN (10:00)
--- NOTE | 2017-02-19 11:38 | General Progress Note ---
Assessment/Plan Problem List: (1) Sepsis ICD Codes: A41.9 - Sepsis, unspecified organism SNOMED: 59107757 (2) Cellulitis of right lower extremity ICD Codes: L03.115 - Cellulitis of right lower limb SNOMED: 332803896 (3) UTI (urinary tract infection) ICD Codes: N39.0 - Urinary tract infection, site not specified SNOMED: 59223241 (4) Trichomonal vaginitis ICD Codes: A59.01 - Trichomonal vulvovaginitis SNOMED: 925067164 (5) Hypokalemia ICD Codes: E87.6 - Hypokalemia SNOMED: 64926182 (6) Hyponatremia ICD Codes: E87.1 - Hypo-osmolality and hyponatremia SNOMED: 80989842 (7) Hypomagnesemia ICD Codes: E83.42 - Hypomagnesemia SNOMED: 281157099 (8) Gram-positive cocci bacteremia ICD Codes: R78.81 - Bacteremia SNOMED: 947752735, 847432715893 (9) Headache Assessment & Plan: Possible 2/2 pseudotumor cerebri or idiopathic intracranial hypertension ICD Codes: R51 - Headache SNOMED: 41060874 Status: stable Assessment/Plan Appreciate ID consult Cont vanco (02/16-) s/p cefepime (02/16-02/18) s/p flagyl to cover trichomonas seen on prior U/A (02/16-02/18) F/u blood cultures--Group A strep F/u repeat blood cultures--ngtd F/u wound culture--MRSA, gamma-hemolytic strep F/u urine culture-->mixed org Check BLE venous duplex --> no e/o DVT Check CT foot and RLE to eval for underlying abscess --> no e/o abscess If pt becomes unstable or clinically deteriorates consider surgical eval CT head neg. Will get MRI brain given c/o severe headache. LP ordered but unable to do over the week per radiology. D/w ER and will only do emergent cases Pain control, bowel regimen Supportive care Replete lytes Counseled on smoking cessation FULL CODE D/w pt, RN, ID regarding mgmt and dispo Subjective Date patient seen: Feb 19, 2017 Time patient seen: 11:36 Constitutional: Reports: chills, fever, malaise, weakness HEENT: Reports: no symptoms Cardiovascular: Reports: no symptoms Respiratory: Reports: no symptoms Gastrointestinal/Abdominal: Reports: no symptoms Genitourinary: Reports: no symptoms Neurologic/Psychiatric: Reports: headache Endocrine: Reports: no symptoms Hematologic/Lymphatic: Reports: no symptoms Allergies: Coded Allergies: No Known Allergies (Unverified , 01/30/17) Subjective Blood culture w/ group A strep Wound culture w/ MRSA and gamma-hemolytic strep Afebrile WBC normalized CT R foot showed no e/o abscess Pt cont w/ weakness, fevers/chills, poor appetite Cont w/ R foot swelling/pain. Redness improving. No drainage Cont to c/o frontal headache. States she has had LP before to drain fluid. CT head neg. Requesting MRI brain Objective Last 24 Hour Vital Signs Date Time Temp Pulse Resp B/P (MAP) Pulse Ox O2 Delivery O2 Flow Rate FiO2 02/19/17 08:00 99.7 81 19 137/77 98 Room Air 02/19/17 04:07 97.6 83 20 137/72 96 Room Air 02/18/17 23:32 99.0 88 20 132/64 96 Room Air 02/18/17 21:45 97.6 02/18/17 19:30 97.6 95 20 131/77 95 Room Air 02/18/17 16:00 97.6 76 20 125/56 100 Room Air 02/18/17 12:05 97.9 82 20 129/68 100 Room Air Laboratory Tests 02/19/17 07:52: White Blood Count 6.3, Red Blood Count 3.29L, Hemoglobin 8.5L, Hematocrit 26.7L , Mean Corpuscular Volume 81, Mean Corpuscular Hemoglobin 25.8L, Mean Corpuscular Hemoglobin Concent 31.8L, Red Cell Distribution Width 15.2H, Platelet Count 126L, Mean Platelet Volume 8.7, Neutrophils (%) (Auto) 83.1H, Lymphocytes (%) (Auto) 11.0L, Monocytes (%) (Auto) 5.0, Eosinophils (%) (Auto) 0.0, Basophils (%) (Auto) 0.8, Sodium Level 131L, Potassium Level 3.6, Chloride Level 100, Carbon Dioxide Level 23, Anion Gap 8, Blood Urea Nitrogen 6L, Creatinine 0.8, Estimat Glomerular Filtration Rate > 60, Glucose Level 85, Calcium Level 8.6, Phosphorus Level 2.3L, Magnesium Level 1.7L Height (Feet): 5 Height (Inches): 3.00 Weight (Pounds): 230 Objective General: alert, cooperative, no distress, appears stated age Head: normocephalic, without obvious abnormality, atraumatic Eyes: conjunctivae/corneas clear. PERRL, EOM's intact Throat: lips, mucosa, and tongue normal. MMM Neck: supple, symmetrical, trachea midline, and no JVD Lungs: clear to auscultation bilaterally Heart: regular rate and rhythm, S1, S2 normal, no murmur, click, rub or gallop Abdomen: soft, non-tender, non-distended, bowel sounds normal; no masses or organomegaly Extremities: Right lower extremity with 3+ edema/erythema/TTP from the dorsum of the foot to the distal third calf. With open abrasion on dorsum of R foot that is wet but without edil purulent drainage Pulses: 2+ and symmetric Skin: skin color, texture, turgor normal; no rashes or lesions Neurologic: grossly normal, no focal deficits Michael Sevilla M.D. Feb 19, 2017 11:38
[2017-02-19 12:00] VITALS: BP 147/82
[2017-02-19] MEDS ORDERED: SODIUM PHOSPHATE IVPB ONE ×2 (14:00→21:00)
[2017-02-19] MEDS ORDERED: D5W IVPB ONE ×2 (14:00→21:00)
[2017-02-19 16:00] VITALS: BP 148/86
--- NOTE | 2017-02-19 17:41 | Infectious Diseases Prog Note ---
Assessment/Plan Assessment/Plan A) 1) mrsa/strep right foot cellulitis/wound infection, group a strep bacteremia right leg cellulitis, sepsis, leukocytosis, fevers - clinically improved - ct without obvious abscess, + soft tissue edema/swelling, d/w Radiology - continue vancomycin - watch labs, check surveillance blood cultures - leukocytosis and fevers better - d/w Dr. Rodriguez 2) possible uti, possible trichomonas vaginalis/cervicitis - s/p flagyl 3) headache, pmh o/w negative 4) + smoking hx, fh-nc, mar noted, notes and records noted 5) allergies - negative 6) d/w RN P) 1) vancomycin 2) watch labs, check surveillance blood cultures 3) continue treatment per Dr. Rodriguez 4) orders entered 5) tang w/u Subjective Constitutional: Reports: fever - lgt only, other - fever curve better HEENT: Reports: other - + tang, Denies: congestion Respiratory: Denies: shortness of breath Cardiovascular: Denies: chest pain Gastrointestinal/Abdominal: Denies: nausea, vomiting, diarrhea Neurologic: Denies: headache Psychiatric: Denies: depression Skin: Denies: rash Hematologic: Denies: bleeding Musculoskeletal: Reports: other - less right foot pain, Denies: pain Allergies: Coded Allergies: No Known Allergies (Unverified , 01/30/17) Objective Vital Signs Last 24 Hour Vital Signs Date Time Temp Pulse Resp B/P (MAP) Pulse Ox O2 Delivery O2 Flow Rate FiO2 02/19/17 16:00 98.1 67 18 148/86 99 Room Air 02/19/17 12:00 98.4 60 17 147/82 98 Room Air 02/19/17 11:36 99.7 02/19/17 08:00 99.7 81 19 137/77 98 Room Air 02/19/17 04:07 97.6 83 20 137/72 96 Room Air 02/18/17 23:32 99.0 88 20 132/64 96 Room Air 02/18/17 21:45 97.6 02/18/17 19:30 97.6 95 20 131/77 95 Room Air Height (Feet): 5 Height (Inches): 3.00 Weight (Pounds): 230 General Appearance: no acute distress HEENT: normocephalic, atraumatic, anicteric, mucous membranes moist, EOMI, pharynx normal, supple, no JVD Respiratory/Chest: lungs clear, normal breath sounds, no respiratory distress, no accessory muscle use Cardiovascular: normal rate, regular rhythm, no gallop/murmur, no JVD Abdomen: normal bowel sounds, soft, non tender, no organomegaly, non distended Genitourinary: other - no vieira Extremities: no cyanosis Skin: no rash 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 Small anterolateral soft tissue ulcer in the ankle No findings to suggest abscess This agrees with the preliminary interpretation provided overnight by [facility] teleradiology service. Microbiology Date/Time Source Procedure Growth Status 02/18/17 04:45 Blood Blood Culture - Preliminary NO GROWTH AFTER 24 HOURS Resulted 02/18/17 04:30 Blood Blood Culture - Preliminary NO GROWTH AFTER 24 HOURS Resulted 02/16/17 22:00 Foot Left Gram Stain - Final Resulted 02/16/17 22:00 Wound Culture - Preliminary Staphylococcus Aureus - Mrsa Strep Species, Gamma-Hemolytic Resulted Laboratory Tests Test 02/19/17 07:52 White Blood Count 6.3 K/UL (4.8-10.8) Red Blood Count 3.29 M/UL (4.20-5.40) L Hemoglobin 8.5 G/DL (12.0-16.0) L Hematocrit 26.7 % (37.0-47.0) L Mean Corpuscular Volume 81 FL (80-99) Mean Corpuscular Hemoglobin 25.8 PG (27.0-31.0) L Mean Corpuscular Hemoglobin Concent 31.8 G/DL (32.0-36.0) L Red Cell Distribution Width 15.2 % (11.6-14.8) H Platelet Count 126 K/UL (150-450) L Mean Platelet Volume 8.7 FL (6.5-10.1) Neutrophils (%) (Auto) 83.1 % (45.0-75.0) H Lymphocytes (%) (Auto) 11.0 % (20.0-45.0) L Monocytes (%) (Auto) 5.0 % (1.0-10.0) Eosinophils (%) (Auto) 0.0 % (0.0-3.0) Basophils (%) (Auto) 0.8 % (0.0-2.0) Sodium Level 131 MMOL/L (136-145) L Potassium Level 3.6 MMOL/L (3.5-5.1) Chloride Level 100 MMOL/L (98-107) Carbon Dioxide Level 23 MMOL/L (21-32) Anion Gap 8 (5-15) Blood Urea Nitrogen 6 mg/dL (7-18) L Creatinine 0.8 MG/DL (0.55-1.30) Estimat Glomerular Filtration Rate > 60 mL/min (>60) Glucose Level 85 MG/DL (74-106) Calcium Level 8.6 MG/DL (8.5-10.1) Phosphorus Level 2.3 MG/DL (2.5-4.9) L Magnesium Level 1.7 MG/DL (1.8-2.4) L Current Medications Medications (Trade) Dose Ordered Sig/Zane Route PRN Reason Start Time Stop Time Status Last Admin Dose Admin Acetaminophen (Tylenol) 650 mg Q4H PRN ORAL Mild Pain (Pain Scale 1-3) 02/16/17 16:45 03/18/17 16:44 02/17/17 20:40 Acetaminophen/ Hydrocodone Bitart ([place] 10/325) 1 ea Q4H PRN ORAL severe pain 02/16/17 17:00 02/23/17 16:59 02/18/17 20:46 Acetaminophen/ Hydrocodone Bitart ([place] 5/325) 1 tab Q4H PRN ORAL Moderate Pain (Pain Scale 4-6) 02/16/17 17:00 02/23/17 16:59 02/17/17 04:41 Al Hydroxide/Mg Hydroxide (Mylanta II) 30 ml Q6H PRN ORAL dyspepsia 02/16/17 16:45 03/18/17 16:44 Bisacodyl (Dulcolax) 10 mg HSPRN PRN RECTAL Constipation Second Line Agent 02/16/17 16:45 03/18/17 16:44 Dextrose (Dextrose 50%) STAT PRN IV Hypoglycemia 02/16/17 16:45 03/18/17 16:44 Diphenhydramine HCl (Benadryl) 25 mg Q6H PRN ORAL Itching/Pruritis 02/16/17 16:45 03/18/17 16:44 Docusate Sodium (Colace) 100 mg EVERY 12 HOURS ORAL 02/16/17 21:00 03/18/17 20:59 02/19/17 08:16 Heparin Sodium (Porcine) (Heparin 5000 units/ml) 5,000 units EVERY 12 HOURS SUBQ 02/16/17 21:00 03/18/17 20:59 02/16/17 20:27 Ketorolac Tromethamine (Toradol 30mg) 30 mg Q6H PRN IV Severe Pain (Pain Scale 7-10) 02/19/17 10:00 02/24/17 09:59 02/19/17 11:06 Morphine Sulfate (Morphine Sulfate) 4 mg Q4H PRN IVP breakthrough pain 02/16/17 17:00 02/23/17 16:59 02/17/17 18:17 Ondansetron HCl (Zofran) 4 mg Q6H PRN IVP Nausea & Vomiting 02/16/17 16:45 03/18/17 16:44 Polyethylene Glycol (Miralax) 17 gm HSPRN PRN ORAL Constipation First Line Agent 02/16/17 16:45 03/18/17 16:44 Sodium Chloride 1,000 ml @ 100 mls/hr Q10H IV 02/17/17 12:00 03/19/17 11:59 02/19/17 03:46 Sodium Phosphate 15 mm/Dextrose 280 ml @ 70.273 mls/ hr ONCE ONCE IVPB 02/19/17 21:00 02/20/17 00:59 Vancomycin HCl (Vanco rx to dose) 1 ea DAILY PRN MISC Per rx protocol 02/16/17 16:45 03/18/17 16:44 Vancomycin HCl/ Dextrose 250 ml @ 125 mls/hr Q12HR@0200,1400 IVPB 02/17/17 02:00 02/22/17 01:59 02/19/17 16:06 Zolpidem Tartrate (Ambien) 5 mg HSPRN PRN ORAL Insomnia 02/16/17 16:45 02/23/17 16:44 DORIS RODRIGUEZ Feb 19, 2017 17:41
[2017-02-19 20:00] VITALS: BP 136/80
[2017-02-20] VITALS: BP 137/76
[2017-02-20] MEDS: Vancomycin 1.5gm/D5W 250ml 250 ML IVPB SCH ×2 (02:00→14:00)
[2017-02-20 08:00] VITALS: BP 146/89
[2017-02-20] MEDS: Heparin 5000 units/ml inj SUBQ SCH ×2 (09:00→21:00)
[2017-02-20] MEDS: Docusate 100mg cap ORAL SCH ×2 (09:00→21:02)
--- NOTE | 2017-02-20 09:51 | Diagnostic Imaging Report ---
Indication: 31-year-old female with severe headaches Comparison: CT brain 02/18/2017 Technique: MRI of the brain was performed without gadolinium contrast. Findings: There is an approximately 10 mm focus of ill-defined diffusion signal in the splenium of the corpus callosum. Differential considerations are broad including subtle infarct, seizure, demyelinating disease, PRES (posterior reversible encephalopathy syndrome), an infectious/inflammatory process to name a few. Otherwise the brain is unremarkable. No mass, mass effect or midline shift. Ventricles and sulci are within normal limits. No extra-axial fluid collections. Bony calvarium is intact. Mild ethmoid sinus disease is noted. Impression: There is an approximately 10 mm focus of ill-defined diffusion signal in the splenium of the corpus callosum. Differential considerations are broad including subtle infarct, seizure, demyelinating disease, PRES (posterior reversible encephalopathy syndrome), an infectious/inflammatory process to name a few. Correlate clinically. Consider post contrast imaging and followup/further evaluation. Otherwise the brain is unremarkable,
[2017-02-20] MEDS: NS w/KCl 40mEq 1,000 ML IV SCH ×2 (10:00→19:31)
[2017-02-20] MEDS ORDERED: Tubing IV Secondary IV ONE (10:21)
[2017-02-20 11:37] VITALS: BP 147/74
--- NOTE | 2017-02-20 13:36 | General Progress Note ---
Assessment/Plan Problem List: (1) Fever with chills ICD Codes: R50.9 - Fever, unspecified SNOMED: 537973606 (2) Sepsis ICD Codes: A41.9 - Sepsis, unspecified organism SNOMED: 03142104 (3) Cellulitis ICD Codes: L03.90 - Cellulitis, unspecified SNOMED: 840668279 Qualifiers: (4) UTI (urinary tract infection) ICD Codes: N39.0 - Urinary tract infection, site not specified SNOMED: 81084205 (5) Trichomonal vaginitis ICD Codes: A59.01 - Trichomonal vulvovaginitis SNOMED: 242330427 (6) Cellulitis of right lower extremity ICD Codes: L03.115 - Cellulitis of right lower limb SNOMED: 379561299 (7) Hypokalemia ICD Codes: E87.6 - Hypokalemia SNOMED: 74613766 (8) Hyponatremia ICD Codes: E87.1 - Hypo-osmolality and hyponatremia SNOMED: 37806188 (9) Hypomagnesemia ICD Codes: E83.42 - Hypomagnesemia SNOMED: 910104453 (10) Gram-positive cocci bacteremia ICD Codes: R78.81 - Bacteremia SNOMED: 925830623, 127817318765 (11) Headache ICD Codes: R51 - Headache SNOMED: 31474058 Status: stable Assessment/Plan PICC line ordered given difficult IV insertion Appreciate ID consult Cont vanco (02/16-) s/p cefepime (02/16-02/18) s/p flagyl to cover trichomonas seen on prior U/A (02/16-02/18) F/u blood cultures--Group A strep F/u repeat blood cultures--ngtd F/u wound culture--MRSA, gamma-hemolytic strep F/u urine culture-->mixed org Check BLE venous duplex --> no e/o DVT Check CT foot and RLE to eval for underlying abscess --> no e/o abscess If pt becomes unstable or clinically deteriorates consider surgical eval CT head neg. Will get MRI brain given c/o severe headache. LP ordered but unable to do over the week per radiology. D/w ER and will only do emergent cases MRI brain showing 10 mm diffusion signal corpus callosum Headache resolved Neurology, Dr. Stewart, consulted Pain control, bowel regimen Supportive care Replete bryan Counseled on smoking cessation FULL CODE D/w pt, RN, ID, and neurology regarding mgmt and dispo Subjective Date patient seen: Feb 20, 2017 Allergies: Coded Allergies: No Known Allergies (Unverified , 01/30/17) Subjective - patient states that she has not gotten her IV abx since yesterday because the IV has been hurting her; requesting a PICC line - MRI brain showing 10 mm diffusion signal to the corpus callosum but no mass or bleed - reports headache resolved since yesterday - denies nausea, vomiting - states right lower extremity is still swollen and painful Objective Last 24 Hour Vital Signs Date Time Temp Pulse Resp B/P (MAP) Pulse Ox O2 Delivery O2 Flow Rate FiO2 02/20/17 11:37 97.7 63 18 147/74 99 Room Air 02/20/17 08:00 97.7 63 18 146/89 100 Room Air 02/20/17 00:00 98.4 68 18 137/76 100 Room Air 02/19/17 20:00 98.4 70 20 136/80 100 Room Air 02/19/17 16:00 98.1 67 18 148/86 99 Room Air Height (Feet): 5 Height (Inches): 3.00 Weight (Pounds): 230 General Appearance: no apparent distress EENT: PERRL/EOMI Neck: non-tender, normal alignment, supple Cardiovascular: normal peripheral pulses, normal rate, regular rhythm Respiratory/Chest: chest wall non-tender, lungs clear, normal breath sounds Abdomen: normal bowel sounds, non tender, soft Edema: 3+ Leg (R) Skin: normal pigmentation, warm/dry Rebekah Peterson N.P. Feb 20, 2017 13:36
[2017-02-20 16:00] VITALS: BP 135/75
--- NOTE | 2017-02-20 16:16 | Infectious Diseases Prog Note ---
Assessment/Plan Assessment/Plan A) 1) mrsa/strep right foot cellulitis/wound infection, group a strep bacteremia right leg cellulitis, sepsis, leukocytosis, fevers - clinically improved - ct without obvious abscess, + soft tissue edema/swelling, d/w Radiology - continue vancomycin for now - watch labs, surveillance blood cultures negative so far - leukocytosis and fevers better - can discharge on oral penicillin plus bactrim x 10 day soon 2) possible uti, possible trichomonas vaginalis/cervicitis - s/p flagyl 3) headache, pmh o/w negative 4) + smoking hx, fh-nc, mar noted, notes and records noted 5) allergies - negative 6) d/w RN P) 1) vancomycin 2) watch labs, check surveillance blood cultures 3) continue treatment per Dr. Rodriguez 4) orders entered 5) tang w/u Subjective Constitutional: Denies: fever Respiratory: Denies: shortness of breath Cardiovascular: Denies: chest pain Gastrointestinal/Abdominal: Denies: nausea Genitourinary: Reports: other - no vieira Neurologic: Denies: headache Psychiatric: Denies: depression Skin: Denies: rash Hematologic: Denies: bleeding Musculoskeletal: Denies: pain Allergies: Coded Allergies: No Known Allergies (Unverified , 01/30/17) Objective Vital Signs Last 24 Hour Vital Signs Date Time Temp Pulse Resp B/P (MAP) Pulse Ox O2 Delivery O2 Flow Rate FiO2 02/20/17 11:37 97.7 63 18 147/74 99 Room Air 02/20/17 08:00 97.7 63 18 146/89 100 Room Air 02/20/17 00:00 98.4 68 18 137/76 100 Room Air 02/19/17 20:00 98.4 70 20 136/80 100 Room Air Height (Feet): 5 Height (Inches): 3.00 Weight (Pounds): 230 General Appearance: no acute distress HEENT: normocephalic, atraumatic, anicteric, mucous membranes moist, EOMI, pharynx normal, supple, no JVD Respiratory/Chest: lungs clear, normal breath sounds, no respiratory distress, no accessory muscle use Cardiovascular: normal rate, regular rhythm, no gallop/murmur, no JVD Abdomen: normal bowel sounds, soft, non tender, no organomegaly, non distended Genitourinary: other - + vieira Extremities: no cyanosis, other - right leg and foot with less cellulitis Skin: no rash 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 Small anterolateral soft tissue ulcer in the ankle No findings to suggest abscess This agrees with the preliminary interpretation provided overnight by [facility] teleradiology service. Microbiology Date/Time Source Procedure Growth Status 02/18/17 04:45 Blood Blood Culture - Preliminary NO GROWTH AFTER 48 HOURS Resulted 02/16/17 14:50 Urine,Clean Catch Urine Culture - Final Mixed Gram Positive Organism Complete 02/16/17 22:00 Foot Left Gram Stain - Final Complete 02/16/17 22:00 Wound Culture - Final Staphylococcus Aureus - Mrsa Streptococcus Pyogenes Grp A Complete Microbiology Date/Time Source Procedure Growth Status 02/18/17 04:45 Blood Blood Culture - Preliminary NO GROWTH AFTER 48 HOURS Resulted 02/18/17 04:30 Blood Blood Culture - Preliminary NO GROWTH AFTER 48 HOURS Resulted Labs Test 02/18/17 04:30 02/19/17 07:52 White Blood Count 9.1 K/UL (4.8-10.8) 6.3 K/UL (4.8-10.8) Red Blood Count 3.55 M/UL (4.20-5.40) 3.29 M/UL (4.20-5.40) Hemoglobin 9.2 G/DL (12.0-16.0) 8.5 G/DL (12.0-16.0) Hematocrit 29.1 % (37.0-47.0) 26.7 % (37.0-47.0) Mean Corpuscular Volume 82 FL (80-99) 81 FL (80-99) Mean Corpuscular Hemoglobin 26.0 PG (27.0-31.0) 25.8 PG (27.0-31.0) Mean Corpuscular Hemoglobin Concent 31.7 G/DL (32.0-36.0) 31.8 G/DL (32.0-36.0) Red Cell Distribution Width 14.8 % (11.6-14.8) 15.2 % (11.6-14.8) Platelet Count 128 K/UL (150-450) 126 K/UL (150-450) Mean Platelet Volume 8.9 FL (6.5-10.1) 8.7 FL (6.5-10.1) Neutrophils (%) (Auto) % (45.0-75.0) 83.1 % (45.0-75.0) Lymphocytes (%) (Auto) % (20.0-45.0) 11.0 % (20.0-45.0) Monocytes (%) (Auto) % (1.0-10.0) 5.0 % (1.0-10.0) Eosinophils (%) (Auto) % (0.0-3.0) 0.0 % (0.0-3.0) Basophils (%) (Auto) % (0.0-2.0) 0.8 % (0.0-2.0) Differential Total Cells Counted 100 Neutrophils % (Manual) 88 % (45-75) Lymphocytes % (Manual) 2 % (20-45) Monocytes % (Manual) 1 % (1-10) Eosinophils % (Manual) 1 % (0-3) Basophils % (Manual) 0 % (0-2) Band Neutrophils 8 % (0-8) Platelet Estimate Decreased Platelet Morphology Normal Anisocytosis 1+ Sodium Level 131 MMOL/L (136-145) 131 MMOL/L (136-145) Potassium Level 3.8 MMOL/L (3.5-5.1) 3.6 MMOL/L (3.5-5.1) Chloride Level 102 MMOL/L (98-107) 100 MMOL/L (98-107) Carbon Dioxide Level 21 MMOL/L (21-32) 23 MMOL/L (21-32) Anion Gap 8 (5-15) 8 (5-15) Blood Urea Nitrogen 8 mg/dL (7-18) 6 mg/dL (7-18) Creatinine 1.0 MG/DL (0.55-1.30) 0.8 MG/DL (0.55-1.30) Estimat Glomerular Filtration Rate > 60 mL/min (>60) > 60 mL/min (>60) Glucose Level 108 MG/DL (74-106) 85 MG/DL (74-106) Calcium Level 8.2 MG/DL (8.5-10.1) 8.6 MG/DL (8.5-10.1) Phosphorus Level 1.6 MG/DL (2.5-4.9) 2.3 MG/DL (2.5-4.9) Magnesium Level 1.9 MG/DL (1.8-2.4) 1.7 MG/DL (1.8-2.4) Current Medications Medications (Trade) Dose Ordered Sig/Zane Route PRN Reason Start Time Stop Time Status Last Admin Dose Admin Acetaminophen (Tylenol) 650 mg Q4H PRN ORAL Mild Pain (Pain Scale 1-3) 02/16/17 16:45 03/18/17 16:44 02/17/17 20:40 Acetaminophen/ Hydrocodone Bitart ([place] 10/325) 1 ea Q4H PRN ORAL severe pain 02/16/17 17:00 02/23/17 16:59 02/18/17 20:46 Acetaminophen/ Hydrocodone Bitart ([place] 5/325) 1 tab Q4H PRN ORAL Moderate Pain (Pain Scale 4-6) 02/16/17 17:00 02/23/17 16:59 02/17/17 04:41 Al Hydroxide/Mg Hydroxide (Mylanta II) 30 ml Q6H PRN ORAL dyspepsia 02/16/17 16:45 03/18/17 16:44 Bisacodyl (Dulcolax) 10 mg HSPRN PRN RECTAL Constipation Second Line Agent 02/16/17 16:45 03/18/17 16:44 Chlorhexidine Gluconate (Lidia-Hex 2%) 1 applic DAILY@2000 TOPIC 02/21/17 20:00 03/23/17 19:59 Dextrose (Dextrose 50%) STAT PRN IV Hypoglycemia 02/16/17 16:45 03/18/17 16:44 Diphenhydramine HCl (Benadryl) 25 mg Q6H PRN ORAL Itching/Pruritis 02/16/17 16:45 03/18/17 16:44 Docusate Sodium (Colace) 100 mg EVERY 12 HOURS ORAL 02/16/17 21:00 03/18/17 20:59 02/19/17 23:28 Heparin Sodium (Porcine) (Heparin 5000 units/ml) 5,000 units EVERY 12 HOURS SUBQ 02/16/17 21:00 03/18/17 20:59 02/16/17 20:27 Heparin Sodium/ Sodium Chloride (Heparin 2000 units/Ns 1000ml premix) 2,000 unit ONCE ONCE INJ 02/21/17 12:00 02/21/17 12:01 Ketorolac Tromethamine (Toradol 30mg) 30 mg Q6H PRN IV Severe Pain (Pain Scale 7-10) 02/19/17 10:00 02/24/17 09:59 02/19/17 11:06 Lidocaine HCl (Xylocaine 1% 30ml) 30 ml ONCE ONCE INJ 02/21/17 12:00 02/21/17 12:01 Morphine Sulfate (Morphine Sulfate) 4 mg Q4H PRN IVP breakthrough pain 02/16/17 17:00 02/23/17 16:59 02/17/17 18:17 Ondansetron HCl (Zofran) 4 mg Q6H PRN IVP Nausea & Vomiting 02/16/17 16:45 03/18/17 16:44 Polyethylene Glycol (Miralax) 17 gm HSPRN PRN ORAL Constipation First Line Agent 02/16/17 16:45 03/18/17 16:44 Sodium Chloride 1,000 ml @ 100 mls/hr Q10H IV 02/17/17 12:00 03/19/17 11:59 02/19/17 03:46 Vancomycin HCl (Vanco rx to dose) 1 ea DAILY PRN MISC Per rx protocol 02/16/17 16:45 03/18/17 16:44 Vancomycin HCl/ Dextrose 250 ml @ 125 mls/hr Q12HR@0200,1400 IVPB 02/17/17 02:00 02/22/17 01:59 02/19/17 16:06 Zolpidem Tartrate (Ambien) 5 mg HSPRN PRN ORAL Insomnia 02/16/17 16:45 02/23/17 16:44 DORIS RODRIGUEZ Feb 20, 2017 16:16
[2017-02-20 20:00] VITALS: BP 129/69
[2017-02-21] VITALS (7 sets, daily range): BP systolic 115–142; BP diastolic 59–85
[2017-02-21] MEDS: Vancomycin 1.5gm/D5W 250ml 250 ML IVPB SCH ×2 (01:16→16:57)
[2017-02-21] MEDS: NS w/KCl 40mEq 1,000 ML IV SCH ×2 (04:56→19:53)
[2017-02-21 07:22] LABS: BASOPHILS % (AUTO) 0.6 % (0.0-2.0); EOSINOPHILS % (AUTO) 0.7 % (0.0-3.0); LYMPHOCYTES % (AUTO) 37.6 % (20.0-45.0); MEAN CORPUSCULAR HEMOGLOBIN 26.6 PG (27.0-31.0); MEAN CORPUSCULAR HGB CONC 32.5 G/DL (32.0-36.0); MEAN CORPUSCULAR VOLUME 82 FL (80-99); MEAN PLATELET VOLUME 7.7 FL (6.5-10.1); MONOCYTES % (AUTO) 13.2 % (1.0-10.0); PLATELET COUNT 173 K/UL (150-450); RED CELL DISTRIBUTION WIDTH 14.9 % (11.6-14.8); WHITE BLOOD COUNT 4.3 K/UL (4.8-10.8)
[2017-02-21 07:55] LABS: ANION GAP 9 (5-15); CALCIUM 9.2 MG/DL (8.5-10.1); CARBON DIOXIDE 24 MMOL/L (21-32); CHLORIDE 107 MMOL/L (98-107); CREATININE 0.9 MG/DL (0.55-1.30); GLOMERULAR FILTRATION RATE > 60 mL/min (>60); POTASSIUM 4.2 MMOL/L (3.5-5.1); SODIUM 140 MMOL/L (136-145)
[2017-02-21] MEDS: Docusate 100mg cap ORAL SCH ×2 (09:39→20:21)
[2017-02-21] MEDS: Heparin 5000 units/ml inj SUBQ SCH ×2 (09:41→20:25)
[2017-02-21] MEDS ORDERED: Heparin 2000 units/Ns 1000ml INJ ONE (12:00)
[2017-02-21] MEDS ORDERED: Lidocaine 1% Plain 30 ml INJ ONE (12:00)
[2017-02-21] MEDS: Norco 10mg/325mg tab ORAL PRN (12:17)
--- NOTE | 2017-02-21 13:31 | Pre-Procedure Note/Attestation ---
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 I attest that, if there was a reasonable possibility of needing a blood transfusion, the patient (or the patient's legal plastic products sales representative) was given the [facility] standardized written summary, pursuant to the [place] Blood Safety Act ([place] Health and Safety Code # 1645, as amended). I attest that I re-evaluated the patient just prior to the surgery and that there has been no change in the patient's H&P, except as documented below: JAY LUCERO M.D. Feb 21, 2017 13:30
--- NOTE | 2017-02-21 13:34 | Brief Operative Note ---
Immediate Post Operative Note Operative Note Pre-op Diagnosis: headache Procedure: LP Post-op Diagnosis: same as pre-op Findings: other - Opening pressure 43 closing pressure 32 Surgeon: Colette LUCERO Anesthesia: local Specimen: yes - 10 ml clear CSF Complications: none Fluids: none Implant(s) used?: No JAY LUCERO M.D. Feb 21, 2017 13:34
[2017-02-21 14:59] LABS: GLUCOSE,CSF 66 mg/dL (50-80)
[2017-02-21 15:59] LABS: APPEARANCE,CSF CLEAR
[2017-02-21 16:00] LABS: COLOR,CSF COLORLESS
[2017-02-21 16:02] LABS: WHITE BLOOD CELL,CSF 0 /CU MM (0-5)
--- NOTE | 2017-02-21 16:37 | Diagnostic Imaging Report ---
Indications: Needs long-term IV access Technique: Ultrasound confirms patent compressible vein. Total sterile technique, including sterile probe cover and sterile gel, hat, mask,, sterile gown, large sterile drape, and preparation with 2% chlorhexidine utilized. Local anesthesia with 1% lidocaine. Under real-time ultrasound guidance, puncture left basilic vein using 21-gauge needle, documented and archived, passage 0.018 guidewire under direct fluoroscopy, which was used to determine appropriate catheter length, exchange for 5 [place] peel-away sheath. 5 [place] Bard dual-lumen power PICC cut to 47 cm. It was inserted through the peel-away sheath. Peel-away sheath and guidewire removed. Catheter fixed to the skin. Both catheter ports aspirated and flushed. Patient tolerated procedure well, without immediate complication. Digital radiograph documents satisfactory catheter tip position, at the cavoatrial junction. Total fluoroscopy time 0.1 minutes. Total dose area product 3.9 dGycm2 Impression: Successful placement of left arm PICC under sonographic and fluoroscopic guidance, as described above.
--- NOTE | 2017-02-21 17:32 | Neurology Progress Note ---
Interim History Interim History ROS Limited/Unobtainable: No Objective Physical Exam Last Vital Signs Date Time Temp Pulse Resp B/P (MAP) Pulse Ox O2 Delivery O2 Flow Rate FiO2 02/21/17 12:00 97.9 20 20 130/71 100 Room Air Laboratory Tests Test 02/21/17 06:00 02/21/17 13:25 White Blood Count 4.3 K/UL (4.8-10.8) L Red Blood Count 3.60 M/UL (4.20-5.40) L Hemoglobin 9.6 G/DL (12.0-16.0) L Hematocrit 29.4 % (37.0-47.0) L Mean Corpuscular Volume 82 FL (80-99) Mean Corpuscular Hemoglobin 26.6 PG (27.0-31.0) L Mean Corpuscular Hemoglobin Concent 32.5 G/DL (32.0-36.0) Red Cell Distribution Width 14.9 % (11.6-14.8) H Platelet Count 173 K/UL (150-450) Mean Platelet Volume 7.7 FL (6.5-10.1) Neutrophils (%) (Auto) 48.0 % (45.0-75.0) Lymphocytes (%) (Auto) 37.6 % (20.0-45.0) Monocytes (%) (Auto) 13.2 % (1.0-10.0) H Eosinophils (%) (Auto) 0.7 % (0.0-3.0) Basophils (%) (Auto) 0.6 % (0.0-2.0) Sodium Level 140 MMOL/L (136-145) Potassium Level 4.2 MMOL/L (3.5-5.1) Chloride Level 107 MMOL/L (98-107) Carbon Dioxide Level 24 MMOL/L (21-32) Anion Gap 9 (5-15) Blood Urea Nitrogen 14 mg/dL (7-18) Creatinine 0.9 MG/DL (0.55-1.30) Estimat Glomerular Filtration Rate > 60 mL/min (>60) Glucose Level 105 MG/DL (74-106) Calcium Level 9.2 MG/DL (8.5-10.1) CSF Appearance Clear CSF Color Colorless CSF WBC 0 /CU MM (0-5) CSF RBC 1 /CU MM CSF Neutrophils % % CSF Lymphocytes % % CSF Monocytes % % CSF Crenated Cells % CSF Glucose 66 mg/dL (50-80) CSF Total Protein 18 MG/DL (15-45) Impression/Recommendations Problems: (1) Pseudotumor cerebri (2) Obesity (3) UTI (urinary tract infection) (4) Cellulitis of right lower extremity Status: stable Recommendations #[id number] outpatient neurof/u OBDULIA BRANCH Feb 21, 2017 17:32
--- NOTE | 2017-02-21 18:04 | Diagnostic Imaging Report ---
Indication: Severe headaches Technique: Prior imaging studies reviewed. Informed consent obtained prior to commencement of the procedure. Skin was sterilely prepped and draped. Local anesthesia with 1% lidocaine. Under fluoroscopic guidance, using a sublaminar approach the thecal sac was accessed at L3-4 using a 22-gauge spinal needle. Patient turned into the left lateral decubitus position. Spontaneous return of clear cerebrospinal fluid was observed. Opening pressure obtained, found to be 43 cm water. Total 10 mL of fluid obtained, divided into 4 vials. The specimen was sent to the lab. Closing pressure obtained, found to be 32 cm of water The patient tolerated the procedure well, without immediate complication. Total fluoroscopy time 0.9 minutes. Total dose area product 4.6 dGycm2 Comparison: None Findings: As above. Intraprocedural images confirm satisfactory needle placement Impression: Lumbar puncture as described. Note evidence of intracranial hypertension, with opening pressure of 43 cm H2O Findings previously discussed in person with Dr. Stewart
[2017-02-21] MEDS ORDERED: Dyna-Hex 2% Top Sol 2oz TOPIC SCH (20:00)
--- NOTE | 2017-02-21 21:35 | General Progress Note ---
Assessment/Plan Problem List: (1) Sepsis ICD Codes: A41.9 - Sepsis, unspecified organism SNOMED: 45463514 (2) Cellulitis of right lower extremity ICD Codes: L03.115 - Cellulitis of right lower limb SNOMED: 569694193 (3) UTI (urinary tract infection) ICD Codes: N39.0 - Urinary tract infection, site not specified SNOMED: 67136022 (4) Trichomonal vaginitis ICD Codes: A59.01 - Trichomonal vulvovaginitis SNOMED: 439623356 (5) Hypokalemia ICD Codes: E87.6 - Hypokalemia SNOMED: 39012449 (6) Hyponatremia ICD Codes: E87.1 - Hypo-osmolality and hyponatremia SNOMED: 80036877 (7) Hypomagnesemia ICD Codes: E83.42 - Hypomagnesemia SNOMED: 517582229 (8) Gram-positive cocci bacteremia ICD Codes: R78.81 - Bacteremia SNOMED: 424634977, 588291983930 (9) Headache Assessment & Plan: Possible 2/2 pseudotumor cerebri or idiopathic intracranial hypertension ICD Codes: R51 - Headache SNOMED: 83033957 Status: stable Assessment/Plan Appreciate ID consult Cont vanco (02/16-) s/p cefepime (02/16-02/18) s/p flagyl to cover trichomonas seen on prior U/A (02/16-02/18) F/u blood cultures--Group A strep F/u repeat blood cultures--ngtd F/u wound culture--MRSA, gamma-hemolytic strep F/u urine culture-->mixed org Check BLE venous duplex --> no e/o DVT Check CT foot and RLE to eval for underlying abscess --> no e/o abscess If pt becomes unstable or clinically deteriorates consider surgical eval CT head neg. MRI brain approximately 10 mm focus of ill-defined diffusion signal in the splenium of the corpus callosum. Neurology consulted s/p LP on 02/20/17 Pain control, bowel regimen Supportive care Replete lytes Counseled on smoking cessation DC planning for tomorrow--home on PO antibiotics per ID FULL CODE D/w pt, RN, ID regarding mgmt and dispo Subjective Date patient seen: Feb 21, 2017 Time patient seen: 21:35 ROS Limited/Unobtainable: No Allergies: Coded Allergies: No Known Allergies (Unverified , 01/30/17) Subjective Blood culture w/ group A strep Wound culture w/ MRSA and group A strep pyogenes Afebrile WBC normalized CT R foot showed no e/o abscess s/p LP today Pt cont w/ weakness, fevers/chills, poor appetite Cont w/ R foot swelling/pain. Redness improving. No drainage Headache resolved s/p LP Objective Last 24 Hour Vital Signs Date Time Temp Pulse Resp B/P (MAP) Pulse Ox O2 Delivery O2 Flow Rate FiO2 02/21/17 19:57 97.1 70 20 131/59 99 Room Air 02/21/17 16:00 99.0 59 20 115/69 100 Room Air 02/21/17 12:00 97.9 20 20 130/71 100 Room Air 02/21/17 08:00 97.0 66 20 117/80 98 Room Air 02/21/17 06:12 78 02/21/17 04:02 96.8 52 20 142/85 98 Room Air 02/21/17 00:24 97.4 63 19 132/74 100 Room Air Laboratory Tests 02/21/17 06:00: White Blood Count 4.3L, Red Blood Count 3.60L, Hemoglobin 9.6L, Hematocrit 29.4L , Mean Corpuscular Volume 82, Mean Corpuscular Hemoglobin 26.6L, Mean Corpuscular Hemoglobin Concent 32.5, Red Cell Distribution Width 14.9H, Platelet Count 173, Mean Platelet Volume 7.7, Neutrophils (%) (Auto) 48.0, Lymphocytes (%) (Auto) 37.6, Monocytes (%) (Auto) 13.2H, Eosinophils (%) (Auto) 0.7, Basophils (%) (Auto) 0.6, Sodium Level 140, Potassium Level 4.2, Chloride Level 107, Carbon Dioxide Level 24, Anion Gap 9, Blood Urea Nitrogen 14, Creatinine 0.9, Estimat Glomerular Filtration Rate > 60, Glucose Level 105, Calcium Level 9.2 02/21/17 13:25: CSF Appearance Clear, CSF Color Colorless, CSF WBC 0, CSF RBC 1, CSF Neutrophils % , CSF Lymphocytes % , CSF Monocytes % , CSF Crenated Cells , CSF Glucose 66, CSF Total Protein 18 Height (Feet): 5 Height (Inches): 3.00 Weight (Pounds): 230 Objective General: alert, cooperative, no distress, appears stated age Head: normocephalic, without obvious abnormality, atraumatic Eyes: conjunctivae/corneas clear. PERRL, EOM's intact Throat: lips, mucosa, and tongue normal. MMM Neck: supple, symmetrical, trachea midline, and no JVD Lungs: clear to auscultation bilaterally Heart: regular rate and rhythm, S1, S2 normal, no murmur, click, rub or gallop Abdomen: soft, non-tender, non-distended, bowel sounds normal; no masses or organomegaly Extremities: Right lower extremity with 3+ edema/erythema/TTP from the dorsum of the foot to the distal third calf. With open abrasion on dorsum of R foot that is wet but without edil purulent drainage Pulses: 2+ and symmetric Skin: skin color, texture, turgor normal; no rashes or lesions Neurologic: grossly normal, no focal deficits Michael Sevilla M.D. Feb 21, 2017 21:35
[2017-02-22] MEDS: Vancomycin 1.5gm/D5W 250ml 250 ML IVPB SCH ×2 (02:01→14:00)
[2017-02-22] MEDS: NS w/KCl 40mEq 1,000 ML IV SCH ×2 (02:01→11:49)
[2017-02-22 03:45] VITALS: BP 125/67
[2017-02-22 08:15] VITALS: BP 128/67
--- NOTE | 2017-02-22 08:17 | Consultation ---
DATE OF CONSULTATION: 02/21/2017 NEUROLOGICAL CONSULTATION CONSULTING PHYSICIAN: Linus Stewart M.D. REQUESTING PHYSICIAN: Genaro Holley M.D. HISTORY OF PRESENT ILLNESS: This 31-year-old female seen in neurological consultation to evaluate the new onset of severe headache, abnormal CSF study, and an abnormal MRI study. The patient informs me that a week prior to admission, she developed a swelling of right foot, etiology of which was not clear. She was diagnosed with cellulitis, saw in the emergency room, was treated for UTI and cellulitis with antibiotics, which were completed approximately a week ago. She had temporarily improved, was able to ambulate, but on the day of admission, she developed swelling, pain, redness in her right foot and ankle, difficulty ambulation, difficulty bearing weight on her right lower extremity with some purulent discharge coming from her right foot. In addition, she developed fever, chills, nausea, poor appetite, and generalized weakness. She developed severe headache, which was gradually increasing. This patient was readmitted and started on IV fluids and antibiotics. She developed excruciating severe headache. Her imaging studies included CT scan of the brain without contrast. This revealed no mass lesion, no edema, and no acute hemorrhage. Further assessment with MRI of the brain was unremarkable except the presence of approximately 10 mm focus of diffusion weighted signal in the splenium of corpus callosum with no mass effect and no edema. Etiology is not clear. My discussion with Dr. Santana included there is a possibility of being artifactual, but other etiologies should be suspected such as , local infectious process. The patient was successfully treated with antibiotics to cover underlying infection. She had been diagnosed with right foot MRSA strep cellulitis, wound infection, with group A strep bacteremia, sepsis, leukocytosis and fevers. CT of the right foot revealed no osteomyelitis. Laboratory work on admission included CBC study with WBC 19.2, low MCV and MCH. Chemistry panel included potassium 2.9 and sodium 133. Final chemistry panel this morning was normal. Toxicology panel was negative. With the persistence of headache, spinal tap was obtained. This revealed a very high opening pressure of 330 mm with a closing pressure 320 mm. A 10 mL of clear CSF was taken to laboratory with initial results revealing normal protein, glucose, and absence of cell counts. The patient informs me that headache was slowly subsiding in the last couple of days, completely gone after the spinal tap was obtained. The patient now recalled that few years ago, she had somewhat similar episode when she developed an infection in her left foot. She also developed severe headache and fevers. She had an MRI of the brain, which revealed "excess of the spinal fluid". Spinal tap was then done and she felt much relief with no further headaches since. The patient denies any intermittent headaches. She denies any visual abnormalities. No gait abnormalities. No urine or bowel incontinence. Normal balance. PAST MEDICAL HISTORY: The patient denies any other major medical problems except those given in HPI. The patient has psychogenic obesity. SOCIAL HISTORY: Single. 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 No alcohol. No drug abuse. Nonsmoker. FAMILY HISTORY: Noncontributory. REVIEW OF SYMPTOMS: A 12-point review of symptoms was obtained. It was negative except those given in HPI. No chest pain. No palpitations. No respiratory problems. Denies abdominal pain or discomfort. No urine or bowel incontinence. PHYSICAL EXAMINATION: GENERAL: A well-developed, moderately obese female, not in acute distress, lying comfortably in bed. VITAL SIGNS: Stable. She is afebrile. Blood pressure 130/71. HEENT: Head, normocephalic. There is no evidence of trauma. Eyes, ears, and throat are clear. NECK: Supple. No meningeal signs. MUSCULOSKELETAL: Examination unremarkable except swollen and tender right ankle and foot. NEUROLOGIC: MENTAL STATUS: She is fully alert and oriented x3 with no evidence of aphasia or apraxia. Cognitive function normal. CRANIAL NERVE II: Pupils both responding to light and accommodation. Extraocular movements intact. No nystagmus. CRANIAL NERVE V: Normal corneal responses. CRANIAL NERVE VII: No facial asymmetry. CRANIAL NERVE VIII: Normal hearing. CRANIAL NERVES IX THROUGH XII: Tongue is in midline. Symmetric palate elevation. MOTOR: Normal muscle tone and strength 5/5 in all extremities. No involuntary movement. Reduced right foot flexion and extension due to pain. GAIT: Not tested, but reported being stable with no assistance. IMPRESSION: 1. Pseudotumor cerebri. 2. Morbid obesity. 3. Right foot cellulitis with sepsis and bacteremia. 4. Severe headaches, most likely related to exacerbation of pseudotumor cerebri in the setting of underlying infection. DISCUSSION: The patient apparently had episodes of pseudotumor cerebri few years ago when she was diagnosed with MRI study and treated with a spinal tap, which resolved her symptoms at that time. Her symptoms obviously were provoked by underlying infection on the prior episode as she was in the current episode. Potentially, presence of very significant elevation of intracranial pressure may cause visual abnormalities as well as an intractable headache. Still exacerbation symptomatology while having an infectious process may indicate only temporary exacerbation. The patient to be followed very closely as outpatient for any visual abnormalities or appearance of headache. MRI study is somewhat nonspecific and has a normal preceding CT of the brain. This may represent an artifact, although mild encephalitic process is not excluded. It is at this time clinically improved. Thank you for allowing me to see this interesting patient in neurological consultation. Linus Stewart M.D. DR: SYED JOB#: [id number] CC:
[2017-02-22] MEDS: Docusate 100mg cap ORAL SCH (08:50)
[2017-02-22] MEDS: Heparin 5000 units/ml inj SUBQ SCH (08:51)
[2017-02-22 12:00] VITALS: BP 118/63
[2017-02-22] MEDS ORDERED: BACTRIM DS TAB1 EAC1 ORAL (14:30)
[2017-02-22] MEDS ORDERED: KEFLEX500 MG ORAL (14:30)
--- NOTE | 2017-02-22 14:42 | Infectious Diseases Prog Note ---
Assessment/Plan Assessment/Plan A/P: 1) mrsa/strep right foot cellulitis/wound infection, group a strep bacteremia right leg cellulitis, sepsis, leukocytosis, fevers - vancomycin iv - clinically improved - ct without obvious abscess, + soft tissue edema/swelling, d/w Radiology - continue vancomycin for now - watch labs, surveillance blood cultures negative so far - leukocytosis and fevers better - can discharge on oral penicillin plus bactrim on week - d/w Dr. Rodriguez 2) possible uti, possible trichomonas vaginalis/cervicitis - s/p flagyl 3) headache, pmh o/w negative - doubt meningitis, csf benign, pseudotumor cerebri per neurology 4) + smoking hx, fh-nc, mar noted, notes and records noted 5) allergies - negative 6) d/w RN Subjective Constitutional: Denies: fever HEENT: Denies: congestion Respiratory: Denies: shortness of breath Cardiovascular: Denies: chest pain Gastrointestinal/Abdominal: Denies: nausea, vomiting, diarrhea, constipation Genitourinary: Reports: other - no vieira, Denies: dysuria, hematuria, frequency Neurologic: Denies: headache Psychiatric: Denies: depression Skin: Denies: rash Hematologic: Denies: bleeding Musculoskeletal: Reports: pain - less right foot pain Allergies: Coded Allergies: No Known Allergies (Unverified , 01/30/17) Objective Vital Signs Last 24 Hour Vital Signs Date Time Temp Pulse Resp B/P (MAP) Pulse Ox O2 Delivery O2 Flow Rate FiO2 02/22/17 12:00 97.9 57 20 118/63 99 Room Air 02/22/17 08:15 97.7 67 18 128/67 100 Room Air 02/22/17 03:45 98.0 65 18 125/67 99 Room Air 02/21/17 23:57 97.9 60 18 128/64 99 Room Air 02/21/17 19:57 97.1 70 20 131/59 99 Room Air 02/21/17 16:00 99.0 59 20 115/69 100 Room Air Height (Feet): 5 Height (Inches): 3.00 Weight (Pounds): 230 General Appearance: no acute distress HEENT: normocephalic, atraumatic, anicteric, mucous membranes moist, PERRL, EOMI, pharynx normal, supple, no JVD Respiratory/Chest: lungs clear, normal breath sounds, no respiratory distress, no accessory muscle use Cardiovascular: normal rate, regular rhythm, no gallop/murmur, no JVD Abdomen: normal bowel sounds, soft, non tender, no organomegaly, non distended Genitourinary: other - no vieira, no cva pain Skin: no rash Neurologic/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 Small anterolateral soft tissue ulcer in the ankle No findings to suggest abscess This agrees with the preliminary interpretation provided overnight by [facility] teleradiology service. Microbiology Date/Time Source Procedure Growth Status 02/21/17 13:25 Cerebral Spinal Fluid Gram Stain - Final Resulted 02/21/17 13:25 Cerebral Spinal Fluid CSF Culture Pending Resulted Labs Test 02/21/17 06:00 02/21/17 13:25 White Blood Count 4.3 K/UL (4.8-10.8) Red Blood Count 3.60 M/UL (4.20-5.40) Hemoglobin 9.6 G/DL (12.0-16.0) Hematocrit 29.4 % (37.0-47.0) Mean Corpuscular Volume 82 FL (80-99) Mean Corpuscular Hemoglobin 26.6 PG (27.0-31.0) Mean Corpuscular Hemoglobin Concent 32.5 G/DL (32.0-36.0) Red Cell Distribution Width 14.9 % (11.6-14.8) Platelet Count 173 K/UL (150-450) Mean Platelet Volume 7.7 FL (6.5-10.1) Neutrophils (%) (Auto) 48.0 % (45.0-75.0) Lymphocytes (%) (Auto) 37.6 % (20.0-45.0) Monocytes (%) (Auto) 13.2 % (1.0-10.0) Eosinophils (%) (Auto) 0.7 % (0.0-3.0) Basophils (%) (Auto) 0.6 % (0.0-2.0) Sodium Level 140 MMOL/L (136-145) Potassium Level 4.2 MMOL/L (3.5-5.1) Chloride Level 107 MMOL/L (98-107) Carbon Dioxide Level 24 MMOL/L (21-32) Anion Gap 9 (5-15) Blood Urea Nitrogen 14 mg/dL (7-18) Creatinine 0.9 MG/DL (0.55-1.30) Estimat Glomerular Filtration Rate > 60 mL/min (>60) Glucose Level 105 MG/DL (74-106) Calcium Level 9.2 MG/DL (8.5-10.1) CSF Appearance Clear CSF Color Colorless CSF WBC 0 /CU MM (0-5) CSF RBC 1 /CU MM CSF Neutrophils % % CSF Lymphocytes % % CSF Monocytes % % CSF Crenated Cells % CSF Glucose 66 mg/dL (50-80) CSF Total Protein 18 MG/DL (15-45) Current Medications Medications (Trade) Dose Ordered Sig/Zane Route PRN Reason Start Time Stop Time Status Last Admin Dose Admin Acetaminophen (Tylenol) 650 mg Q4H PRN ORAL Mild Pain (Pain Scale 1-3) 02/16/17 16:45 03/18/17 16:44 02/21/17 18:10 Acetaminophen/ Hydrocodone Bitart ([place] 10/325) 1 ea Q4H PRN ORAL severe pain 02/16/17 17:00 02/23/17 16:59 02/21/17 12:17 Acetaminophen/ Hydrocodone Bitart ([place] 5/325) 1 tab Q4H PRN ORAL Moderate Pain (Pain Scale 4-6) 02/16/17 17:00 02/23/17 16:59 02/17/17 04:41 Al Hydroxide/Mg Hydroxide (Mylanta II) 30 ml Q6H PRN ORAL dyspepsia 02/16/17 16:45 03/18/17 16:44 Bisacodyl (Dulcolax) 10 mg HSPRN PRN RECTAL Constipation Second Line Agent 02/16/17 16:45 03/18/17 16:44 Chlorhexidine Gluconate (Lidia-Hex 2%) 1 applic DAILY@1999 TOPIC 02/21/17 20:00 03/23/17 19:59 02/21/17 20:21 Dextrose (Dextrose 50%) STAT PRN IV Hypoglycemia 02/16/17 16:45 03/18/17 16:44 Diphenhydramine HCl (Benadryl) 25 mg Q6H PRN ORAL Itching/Pruritis 02/16/17 16:45 03/18/17 16:44 Docusate Sodium (Colace) 100 mg EVERY 12 HOURS ORAL 02/16/17 21:00 03/18/17 20:59 02/22/17 08:50 Heparin Sodium (Porcine) (Heparin 5000 units/ml) 5,000 units EVERY 12 HOURS SUBQ 02/16/17 21:00 03/18/17 20:59 02/22/17 08:51 Ketorolac Tromethamine (Toradol 30mg) 30 mg Q6H PRN IV Severe Pain (Pain Scale 7-10) 02/19/17 10:00 02/24/17 09:59 02/19/17 11:06 Morphine Sulfate (Morphine Sulfate) 4 mg Q4H PRN IVP breakthrough pain 02/16/17 17:00 02/23/17 16:59 02/17/17 18:17 Ondansetron HCl (Zofran) 4 mg Q6H PRN IVP Nausea & Vomiting 02/16/17 16:45 03/18/17 16:44 Polyethylene Glycol (Miralax) 17 gm HSPRN PRN ORAL Constipation First Line Agent 02/16/17 16:45 03/18/17 16:44 Sodium Chloride 1,000 ml @ 100 mls/hr Q10H IV 02/17/17 12:00 03/19/17 11:59 02/22/17 02:01 Vancomycin HCl (Vanco rx to dose) 1 ea DAILY PRN MISC Per rx protocol 02/20/17 16:30 03/22/17 16:29 Vancomycin HCl/ Dextrose 250 ml @ 125 mls/hr Q12HR@0200,1400 IVPB 02/21/17 02:00 02/25/17 01:59 02/22/17 02:01 Zolpidem Tartrate (Ambien) 5 mg HSPRN PRN ORAL Insomnia 02/16/17 16:45 02/23/17 16:44 DORIS RODRIGUEZ Feb 22, 2017 14:42
[2017-02-22 15:52] VITALS: BP 141/85
--- NOTE | 2017-02-23 23:40 | Diagnostic Imaging Report ---
APPROVED REPORT CPT Code: 72189 Present Symptoms Lower Extremity Pain: Right Lower Extremity Edema: Right Comments: Prior Venous Duplex 01/30/2017. RIGHT LEG: Venous imaging reveals a patent deep venous system. There is no evidence of thrombus within the femoral, popliteal or tibial segments. The greater saphenous vein is also within normal limits. Doppler indicates normal spontaneous flow within these segments. The tibial veins were not well visualized. LEFT LEG: Venous imaging reveals a patent deep venous system. There is no evidence of thrombus within the femoral, popliteal or tibial segments. The greater saphenous vein is also within normal limits. Doppler indicates normal spontaneous flow within these segments. Incidental findings: Enlarged lymph node at the level of the right proximal superficial femoral vein measuring 2.5 cm x 1.0 cm x 1.8 cm. Torres's cyst in right popliteal fossa measuring 4.5 cm x 1.1 cm x 1.4 cm.
--- NOTE | 2017-02-25 22:19 | Discharge Summary ---
Discharge Summary Hospital Course Date of Admission Feb 16, 2017 at 14:13 Date of Discharge Feb 22, 2017 at 16:47 Admitting Diagnosis sepsis, cellulitis Reason for Hospitalization: sepsis, cellulitis HPI 31y/o female with pmh of lymphedema who presents with increased RLE pain/ swelling/redness. Pt states abt 2 weeks ago she was seen in ER and placed on antibiotics for cellulitis and also for UTI. She completed the antibiotics abt 1 week ago; and she was able to ambulate. However today she noted recurrent RLE swelling/pain/redness with difficulty ambulating/bearing weight on RLE. Also noted some purulent drainage from R foot. She thinks abt 2 weeks ago she had some kind of bug bite or R foot. She also started having fevers/chills, nausea, poor appetite and generalized weakness. Denies chest pain, SOB, abd pain, dysuria. She denies recent travel. Consultations Infectious disease, Neurology Hospital Course Pt was admitted and continued on broad spectrum antibiotics given sepsis with likely source being RLE skin/soft tissue infection. She underwent CT of foot/ leg which showed no e/o deep infection or abscess. She was found to have strep pyogenes bacteremia. Wound culture grew MRSA and strep pyogenes. Pt developed headache similar to prior which improved w/ LP. CT head neg. MRI brain showed 10 mm focus of ill-defined diffusion signal in the splenium of the corpus callosum. Pt underwent LP with unremarkable CSF studies. Headache resoled. Pt was transitioned to course of PO bactrim and keflex on discharge to complete treatment per ID. Discharge Medications Continued Medications: Cephalexin* (Keflex*) 500 Mg Capsule 500 MG ORAL Q6H for 7 Days, #28 CAP 0 Refills (This prescription has been renewed) Ibuprofen* (Motrin*) 600 Mg Tablet 600 MG ORAL Q6H PRN for For Pain, #20 TAB No Known Medications* (NKM - No Known Medications*) . 0 ., 0 Refills Tramadol Hcl* (Ultram*) 50 Mg Tablet 50 MG ORAL Q6H PRN for For Pain, #12 TAB 0 Refills Trimethoprim/Sulfamethoxazole 160/800* (Bactrim Ds Tablet*) 1 Each Tablet 1 TAB ORAL Q12H for 7 Days, #14 TAB 0 Refills (This prescription has been renewed) Discharge Condition Upon Discharge: stable Discharge Disposition Patient was discharged to Home (01) Discharge Diagnoses: (1) Sepsis (2) Cellulitis of right lower extremity (3) Hypokalemia (4) Hyponatremia (5) Hypomagnesemia (6) Headache (7) Pseudotumor cerebri (8) Obesity (9) Lymphedema (10) UTI (urinary tract infection) (11) Trichomonal vaginitis (12) Streptococcus pyogenes bacteremia (13) Cellulitis secondary to staph and strep Michael Sevilla M.D. Feb 25, 2017 22:19
== END 2017-02-22 16:47 | disposition home or self-care (01) | DRG 720 ==
LOC: EMR 13:26 → 4W 14:13 → EDBEDREQ 16:10
PROC: 02HV33Z Insertion of Infusion Device into Superior Vena Cava, Percutaneous Approach (ICD-10-PCS; 2017-02-20)
PROC: B518ZZA Fluoroscopy of Superior Vena Cava, Guidance (ICD-10-PCS; 2017-02-20)
PROC: 009U3ZX Drainage of Spinal Canal, Percutaneous Approach, Diagnostic (ICD-10-PCS; principal; 2017-02-21)
DX: A41.9 Sepsis, unspecified organism (principal); E87.1 Hypo-osmolality and hyponatremia; E83.42 Hypomagnesemia; Z68.41 Body mass index [BMI] 40.0-44.9, adult; A59.01 Trichomonal vulvovaginitis; N39.0 Urinary tract infection, site not specified; L03.115 Cellulitis of right lower limb; F17.200 Nicotine dependence, unspecified, uncomplicated; E87.6 Hypokalemia; G93.2 Benign intracranial hypertension; E66.01 Morbid (severe) obesity due to excess calories; B95.5 Unspecified streptococcus as the cause of diseases classified elsewhere; B95.62 Methicillin resistant Staphylococcus aureus infection as the cause of diseases classified elsewhere
CPT/HCPCS: 36415; 36569; 70450; 70551; 76937; 80048; 80053; 80202; 81003; 81025; 82728; 82945; 83540; 83550; 83605; 83735; 84100; 84157; 85007; 85025; 87040; 87070; 87086; 87181; 87205; 89051; 93306; 93971; 99285; J8499